=== PATIENT | male | born 1945 | race Caucasian/White ===

== ENCOUNTER 2025-04-20 15:27 | Outpatient (AMB) | payer MEDICARE, OTHER, SELFPAY ==
--- OUTSIDE RECORDS SUMMARY | 2025-04-20 15:30 | XMS_ITS | Patient Health Record ---
Author Organization [facility] Address [address] [facility] [address] [place] [address] Care Team Providers Care Drapery Estimator Name Role Phone Stefan Jeffers MD Primary Care Provider Unavaila Ene Hawthorne Unavailable [phone] Dunia Alejo MD Unavailable Unavaila ble Allergies No Known Allergies Results Component Value Reference Range Notes Urine Culture, Routine Reviewed date:03/08/2025 08:20:27 AM Interpretation: Performing Lab:[facility] [address] [id number], Phone - [phone], Director - Bindu Notes/Report: Clinical Information:SRC:UR Clinical Information:SRC:UR Urine Culture, Routine Final report Result 1 Comment Culture shows less than 10,000 colony forming units of bacteria per milliliter of urine. This colony count is not generally considered to be clinically significant. C-Reactive Protein, Quant Reviewed date:03/08/2025 08:20:27 AM Interpretation: Performing Lab:[facility] [address] [id number], Phone - [phone], Director - Bindu Notes/Report: Clinical Information:SRC:UR C-Reactive Protein, Quant 20 0-10 mg/L CBC With Differential/Platel et Reviewed date:03/08/2025 08:20:27 AM Interpretation: Performing Lab:[facility] [address] [id number], Phone - [phone], Director - Bindu Notes/Report: Clinical Information:SRC:UR WBC 6.0 3.4-10.8 x10E3/uL RBC 5.07 4.14-5.80 x10E6/uL Hemoglobin 16.4 13.0-17.7 g/dL Hematocrit 49.5 37.5-51.0 % MCV 98 79-97 fL MCH 32.3 26.6-33.0 pg MCHC 33.1 31.5-35.7 g/dL RDW 14.1 11.6-15.4 % Platelets 146 150-450 x10E3/uL Neutrophils 52 Not Estab. % Lymphs 30 Not Estab. % Monocytes 13 Not Estab. % Eos 3 Not Estab. % Basos 1 Not Estab. % Neutrophils (Absolute) 3.2 1.4-7.0 x10E3/uL Lymphs (Absolute) 1.8 0.7-3.1 x10E3/uL Monocytes(Absolute) 0.8 0.1-0.9 x10E3/uL Eos (Absolute) 0.2 0.0-0.4 x10E3/uL Baso (Absolute) 0.1 0.0-0.2 x10E3/uL Immature Granulocytes 1 Not Estab. % Immature Grans (Abs) 0.0 0.0-0.1 x10E3/uL Urinalysis, Complete Reviewed date:03/08/2025 08:20:27 AM Interpretation: Performing [facility] [id number], Phone - [phone], Director - Bindu Notes/Report: Clinical Information:SRC:UR Clinical Information:SRC:UR Specific Screven 1.011 1.005-1.030 pH 6.0 5.0-7.5 Urine-Color Yellow Yellow Appearance Clear Clear WBC Esterase Negative Negative Protein Negative Negative/Trace Glucose 2+ Negative Ketones Negative Negative Occult Blood Negative Negative Bilirubin Negative Negative Urobilinogen,Semi-Qn 0.2 0.2-1.0 mg/dL Nitrite, Urine Negative Negative Microscopic Examination Comment Micr oscopic follows if indicated. Microscopic Examination See below: Micr oscopic was indicated and was performed. WBC None seen 0 - 5 /hpf RBC None seen 0 - 2 /hpf Epithelial Cells (non renal) None seen 0 - 10 /hpf Casts None seen None seen /lpf Bacteria None seen None seen/Few Hep B and C Screen Reviewed date:11/21/2024 11:43:16 AM Interpretation: Performing Lab:[facility] [address] [place], [place] [id number], Phone - [phone], Director - Bindu Notes/Report: HBsAg Screen Negative Negative Hep B Surface Ab, Qual Non Reactive Non Reactive: Not immune to HBV infection. Equivocal: Unable to determine if anti-HBs is present at levels consistent with immunity. Reactive: Anti-HBs concentration detected at greater than 10 mIU/mL. Individual is considered to be immune to infection with HBV. Hep B Core Ab, Tot Negative Negative HCV Ab Non Reactive Non Reactive Interpretation: Comment Not infected with HCV unless early or acute infection is suspected (which may be delayed in an immunocompromised individual), or other evidence exists to indicate HCV infection. QuantiFERON TB Gold Plus (LC A Incubated) Reviewed date:11/21/2024 11:43:16 AM Interpretation: Performing [facility] [place] [place] [id number], Phone - [phone], Director - Bindu Notes/Report: QuantiFERON Incubation Incubation performed. QuantiFERON-TB Gold Plus Negative Negative No response to M tuberculosis antigens detected. Infection with M tuberculosis is unlikely, but high risk individuals should be considered for additional testing (ATS/IDSA/CDC Clinical Practice Guidelines, 2017). The reference range is an Antigen minus Nil result of <0.35 IU/mL. Chemiluminescence immunoassay methodology QuantiFERON Criteria Comment QuantiFERON-TB Gold Plus is a qualitative indirect test for M tuberculosis infection (including disease) and is intended for use in conjunction with risk assessment, radiography, and other medical and diagnostic evaluations. The QuantiFERON-TB Gold Plus result is determined by subtracting the Nil value from either TB antigen (Ag) value. The Mitogen tube serves as a control for the test. QuantiFERON TB1 Ag Value 0.01 QuantiFERON TB2 Ag Value 0.01 QuantiFERON Nil Value 0.01 QuantiFERON Mitogen Value >10.00 Comp. Metabolic Panel (14) Reviewed date:11/21/2024 11:43:16 AM Interpretation: [facility] [place] [place] [id number], Phone - [phone], Director - Bindu Notes/Report: Glucose 109 70-99 mg/dL BUN 36 8-27 mg/dL Creatinine 1.89 0.76-1.27 mg/dL eGFR 35 >59 mL/min/1.73 BUN/Creatinine Ratio 19 10-24 Sodium 139 134-144 mmol/L Potassium 4.5 3.5-5.2 mmol/L Chloride 102 96-106 mmol/L Carbon Dioxide, Total 22 20-29 mmol/L Calcium 9.6 8.6-10.2 mg/dL Protein, Total 7.3 6.0-8.5 g/dL Albumin 4.3 3.8-4.8 g/dL Globulin, Total 3.0 1.5-4.5 g/dL Bilirubin, Total 2.0 0.0-1.2 mg/dL Alkaline Phosphatase 103 44-121 IU/L AST (SGOT) 26 0-40 IU/L ALT (SGPT) 21 0-44 IU/L C-Reactive Protein, Quant Reviewed date:11/21/2024 11:43:16 AM Interpretation: Performing Lab:[facility] [place], [address] [place] [id number], Phone - [phone], Director - Bindu Notes/Report: C-Reactive Protein, Quant 25 0-10 mg/L CBC With Differential/Platel et Reviewed date:11/21/2024 11:43:16 AM Interpretation: Performing Lab:[facility], [address] [place] [id number], Phone - [phone], Director - Bindu Notes/Report: WBC 10.2 3.4-10.8 x10E3/uL RBC 5.12 4.14-5.80 x10E6/uL Hemoglobin 16.8 13.0-17.7 g/dL Hematocrit 50.5 37.5-51.0 % MCV 99 79-97 fL MCH 32.8 26.6-33.0 pg MCHC 33.3 31.5-35.7 g/dL RDW 13.8 11.6-15.4 % Platelets 152 150-450 x10E3/uL Neutrophils 75 Not Estab. % Lymphs 16 Not Estab. % Monocytes 6 Not Estab. % Eos 1 Not Estab. % Basos 0 Not Estab. % Neutrophils (Absolute) 7.7 1.4-7.0 x10E3/uL Lymphs (Absolute) 1.6 0.7-3.1 x10E3/uL Monocytes(Absolute) 0.6 0.1-0.9 x10E3/uL Eos (Absolute) 0.1 0.0-0.4 x10E3/uL Baso (Absolute) 0.0 0.0-0.2 x10E3/uL Immature Granulocytes 2 Not Estab. % Immature Grans (Abs) 0.2 0.0-0.1 x10E3/uL (An elevated percentage of Immature Granulocytes has not been found to be clinically significant as a sole clinical predictor of disease. Does NOT include bands or blast cells. associated physiological leukocytosis may also show increased immature granulocytes without clinical significance.) Reason For Referral No Information Medications Medication SIG (Take, Route, Frequency, Duration) Notes Start Date End Date Status Triamcinolone Acetonide 0.025 % 1 application Externally Once a day 11/29/2024 Active Skyrizi Pen 150 MG/ML Loading Dose inject one pen (1 mL) Subcutaneous on week 0 and week 4 for 30 days Rx Clarification for Loading dose PA Approval CASE ID: [id number] Eff 11/26/2023- 027 11/14/2024 Active Magnesium Active Augmentin 500-125 MG 1 tablet Orally every 12 hrs Not-Taking Vitamin K2 Active predniSONE 1 MG 2 tablets Orally each morning for 90 days 2mg a day 11/14/2024 Active Vitamin D3 Active Metoprolol Succinate 25 MG 1 capsule Orally Once a day Active Repatha 140 MG/ML 1 mL Subcutaneous Active Farxiga 10 MG 1 tablet Orally Once a day Active Skyrizi Pen 150 MG/ML 1 mL Subcutaneous every 12 weeks To start 4 weeks after initial loading dose 11/14/2024 Not-Taking predniSONE 5 MG 1 tablet Orally Once a day Not-Taking Uloric 40 MG 1 tablet Orally Once a day Active Lasix 40 MG 1 tablet Orally Once a day prn Active Immunizations Vaccine Route Administration Date Status Comme nts Influenza Unknown 11/14/2024 Refused Influenza Unknown 02/06/2025 Refused Influenza Unknown 03/06/2025 Refused PNEUMOVAX Unknown 11/11/2024 Administered PNEUMOVAX Unknown 01/31/2025 Administered PNEUMOVAX Unknown 03/02/2025 Administered Social History Tobacco Use: Social History Observation Description Date Details (start date - stop date) Never Smoker NA - NA Alcohol Screen Question Answer Notes Did you have a drink containing alcohol in the p ast year? No Points 0 Interpretation Negative Tobacco use other than smoking: Question Answer Notes Are you an other tobacco user? 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) Active confirmed Problem Psoriasis (8540097) Other psoriasis (L40.8) Active confirmed Problem Chronic fatigue, unspecified (R53.82) Active confirmed Problem Long-term current use of systemic steroid (9174822435827 03) USP (current) use of systemic steroids (Z79.52) Active confirmed Vital Signs Heart Rate 69 /min 03/06/2025 Temperature 97.9 degrees Fahrenheit 03/06/2025 Blood pressure diastolic 69 mm Hg 03/06/2025 Height 70 in 03/06/2025 Blood pressure systolic 110 mm Hg 03/06/2025 Weight 173.5 lbs 03/06/2025 BMI 24.89 kg/m2 03/06/2025 Encounters Encounter Location Date Provider Diagnosis [facility] [address] [facility] [address] [place], [place] [id number] 11/14/2024 Ene Barr Other psoriatic arthropathy L40.59 ; Other psoriasis L40.8 ; USP (current) use of systemic steroids Z79.52 ; [employer] high risk medication (other) Z79.899 and Chronic fatigue, unspecified R53.82 [facility] [place] [address] [facility] [address] [place], [place] [id number] 02/06/2025 Ene Barr Other psoriatic arthropathy L40.59 ; Other psoriasis L40.8 ; USP (current) use of systemic steroids Z79.52 and USP high risk medication (other) Z79.[address] [facility] [address] [facility] [address] [place], [place] [id number] 03/06/2025 Ene Barr Other psoriatic arthropathy L40.59 ; Other psoriasis L40.8 ; USP (current) use of systemic steroids Z79.52 ; USP high risk medication (other) Z79.899 and Dysuria R30.0 [facility] [address] [place], [place] [id number] 01/06/[address] [facility] [address] [place], [place] [id number] 02/15/2025 Ene Barr Other psoriatic arthropathy L40.[address] [facility] [address] [place], [place] [id number] 04/18/2025 [facility] [address] [place], [place] [id number] 11/15/2024 Ene Barr Other psoriatic arthropathy L40.59 [facility] [address] [place], [place] [id number] 11/28/2024 [facility] [address] [place], [place] [id number] 11/28/2024 Ene Barr Psoriasis vulgaris L40.0 [facility] [address] [place], [place] [id number] 11/29/2024 [facility] [address] [place], [place] [id number] 12/01/2024 [facility] [address] [place], [place] [id number] 12/01/2024 [facility] [address] [place], [place] [id number] 12/17/2024 [facility] [address] [place], [place] [id number] 12/21/2024 Ene Barr Assessments Encounter Date Diagnosis (ICD Code) Assessment Notes Treatment Notes Treatment Clinical Notes Section Notes 11/14/2024 Other psoriatic arthropathy (ICD-10 - L40.59) Mr. Eaton is here for initial evaluation of psoriatic arthritis and psoriasis. He has long standing disease, prior great benefit with Enbrel but he has opted to treat with just prednisone over the years. Now with multiple co-morbidities (CHF, PAD, chronic wounds, colorectal cancer, diabetes, peripheral neuropathy, recent sepsis) and I strongly encourage him to try to get all the way off prednisone if able. He has been on a low dose for many many years. Given that he also continues to have active arthritis and psoriasis, we will try to replace with immunomodulator. Discussed many options. Methotrexate contraindicated due to CKD. TNFi contraindicated due to advanced heart failure. Jim contraindicated due to h/o cancer and severe PAD. We will go with Skyrizi if covered. Back up plan if needed, consider Orencia infusions - start Skyrizi 150 mg at week 0, 4, then every 12 weeks thereafter - taper prednisone by 1 mg/month to lowest tolerable dose, discussed symptoms of adrenal insufficiency to be aware of - labs today - return to clinic in 2-3 months 60 minutes spent on todays encounter 11/28/2024 Psoriasis vulgaris (ICD-10 - L40.0) 02/06/2025 Other psoriatic arthropathy (ICD-10 - L40.59) Mr. Eaton is here for follow up of psoriatic arthritis and psoriasis. He has long standing disease, prior great benefit with Enbrel but he has opted to treat with just prednisone over the years. Now with multiple co-morbidities (CHF, PAD, chronic wounds, colorectal cancer, diabetes, peripheral neuropathy, recent sepsis) and I have strongly encouraged him to try to get all the way off prednisone if able and he is working on that. Given that he also continues to have active arthritis and psoriasis, I do still recommend we replace with immunomodulator. Methotrexate contraindicated due to CKD. TNFi contraindicated due to advanced heart failure. Jim contraindicated due to h/o cancer and severe PAD. He has developed a new wound and would like to wait to start the Skyrizi which is fine. But he does have the Skyrizi ready at home - once wound heals, ok to start Skyrizi 150 mg at week 0, 4, then every 12 weeks thereafter - taper prednisone by 1 mg/month to lowest tolerable dose (he is currently at 2 mg/d), discussed symptoms of adrenal insufficiency to be aware of - return to clinic in 2-3 months 02/06/2025 Other psoriasis (ICD-10 - L40.8) Mr. Eaton is here for follow up of psoriatic arthritis and psoriasis. He has long standing disease, prior great benefit with Enbrel but he has opted to treat with just prednisone over the years. Now with multiple co-morbidities (CHF, PAD, chronic wounds, colorectal cancer, diabetes, peripheral neuropathy, recent sepsis) and I have strongly encouraged him to try to get all the way off prednisone if able and he is working on that. Given that he also continues to have active arthritis and psoriasis, I do still recommend we replace with immunomodulator. Methotrexate contraindicated due to CKD. TNFi contraindicated due to advanced heart failure. Jim contraindicated due to h/o cancer and severe PAD. He has developed a new wound and would like to wait to start the Skyrizi which is fine. But he does have the Skyrizi ready at home - once wound heals, ok to start Skyrizi 150 mg at week 0, 4, then every 12 weeks thereafter - taper prednisone by 1 mg/month to lowest tolerable dose (he is currently at 2 mg/d), discussed symptoms of adrenal insufficiency to be aware of - return to clinic in 2-3 months 11/14/2024 Other psoriasis (ICD-10 - L40.8) Mr. Eaton is here for initial evaluation of psoriatic arthritis and psoriasis. He has long standing disease, prior great benefit with Enbrel but he has opted to treat with just prednisone over the years. Now with multiple co-morbidities (CHF, PAD, chronic wounds, colorectal cancer, diabetes, peripheral neuropathy, recent sepsis) and I strongly encourage him to try to get all the way off prednisone if able. He has been on a low dose for many many years. Given that he also continues to have active arthritis and psoriasis, we will try to replace with immunomodulator. Discussed many options. Methotrexate contraindicated due to CKD. TNFi contraindicated due to advanced heart failure. Jim contraindicated due to h/o cancer and severe PAD. We will go with Skyrizi if covered. Back up plan if needed, consider Orencia infusions - start Skyrizi 150 mg at week 0, 4, then every 12 weeks thereafter - taper prednisone by 1 mg/month to lowest tolerable dose, discussed symptoms of adrenal insufficiency to be aware of - labs today - return to clinic in 2-3 months 60 minutes spent on todays encounter 02/15/2025 Other psoriatic arthropathy (ICD-10 - L40.59) 03/06/2025 Other psoriatic arthropathy (ICD-10 - L40.59) Mr. Eaton is here for follow up of psoriatic arthritis and psoriasis. He has long standing disease, prior great benefit with Enbrel but he has opted to treat with just prednisone over the years. Now with multiple co-morbidities (CHF, PAD, chronic wounds, colorectal cancer, diabetes, peripheral neuropathy, recent sepsis) and we have been working to get all the way off prednisone if able. Very recently added Skyrizi but has only had 1 dose. We will give it more time Methotrexate contraindicated due to CKD. TNFi contraindicated due to advanced heart failure. Jim contraindicated due to h/o cancer and severe PAD. - continue Skyrizi 150 mg at week 0, 4, then every 12 weeks thereafter (has had one dose so far) - taper prednisone by 1 mg/month to lowest tolerable dose (he is currently at 1 mg/d), ok to play around with dose <5 mg/d as his is a little concerned that some current symptoms may be related to tapering prednisone - check labs today including UA/UC given chills and mild dysuria, slight concern for possible infection - return to clinic in 2-3 months, he and his do snowbird so may not be able to return until they get back 03/06/2025 Other psoriasis (ICD-10 - L40.8) Mr. Eaton is here for follow up of psoriatic arthritis and psoriasis. He has long standing disease, prior great benefit with Enbrel but he has opted to treat with just prednisone over the years. Now with multiple co-morbidities (CHF, PAD, chronic wounds, colorectal cancer, diabetes, peripheral neuropathy, recent sepsis) and we have been working to get all the way off prednisone if able. Very recently added Skyrizi but has only had 1 dose. We will give it more time Methotrexate contraindicated due to CKD. TNFi contraindicated due to advanced heart failure. Jim contraindicated due to h/o cancer and severe PAD. - continue Skyrizi 150 mg at week 0, 4, then every 12 weeks thereafter (has had one dose so far) - taper prednisone by 1 mg/month to lowest tolerable dose (he is currently at 1 mg/d), ok to play around with dose <5 mg/d as his is a little concerned that some current symptoms may be related to tapering prednisone - check labs today including UA/UC given chills and mild dysuria, slight concern for possible infection - return to clinic in 2-3 months, he and his do snowbird so may not be able to return until they get back 11/15/2024 Other psoriatic arthropathy (ICD-10 - L40.59) 03/06/2025 USP (current) use of systemic steroids (ICD-10 - Z79.52) Mr. Eaton is here for follow up of psoriatic arthritis and psoriasis. He has long standing disease, prior great benefit with Enbrel but he has opted to treat with just prednisone over the years. Now with multiple co-morbidities (CHF, PAD, chronic wounds, colorectal cancer, diabetes, peripheral neuropathy, recent sepsis) and we have been working to get all the way off prednisone if able. Very recently added Skyrizi but has only had 1 dose. We will give it more time Methotrexate contraindicated due to CKD. TNFi contraindicated due to advanced heart failure. Jim contraindicated due to h/o cancer and severe PAD. 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 Eaton is here for initial evaluation of psoriatic arthritis and psoriasis. He has long standing disease, prior great benefit with Enbrel but he has opted to treat with just prednisone over the years. Now with multiple co-morbidities (CHF, PAD, chronic wounds, colorectal cancer, diabetes, peripheral neuropathy, recent sepsis) and I strongly encourage him to try to get all the way off prednisone if able. He has been on a low dose for many many years. Given that he also continues to have active arthritis and psoriasis, we will try to replace with immunomodulator. Discussed many options. Methotrexate contraindicated due to CKD. TNFi contraindicated due to advanced heart failure. Jim contraindicated due to h/o cancer and severe PAD. We will go with Skyrizi if covered. Back up plan if needed, consider Orencia infusions - start Skyrizi 150 mg at week 0, 4, then every 12 weeks thereafter - taper prednisone by 1 mg/month to lowest tolerable dose, discussed symptoms of adrenal insufficiency to be aware of - labs today - return to clinic in 2-3 months 60 minutes spent on todays encounter 02/06/2025 USP (current) use of systemic steroids (ICD-10 - Z79.52) Mr. Eaton is here for follow up of psoriatic arthritis and psoriasis. He has long standing disease, prior great benefit with Enbrel but he has opted to treat with just prednisone over the years. Now with multiple co-morbidities (CHF, PAD, chronic wounds, colorectal cancer, diabetes, peripheral neuropathy, recent sepsis) and I have strongly encouraged him to try to get all the way off prednisone if able and he is working on that. Given that he also continues to have active arthritis and psoriasis, I do still recommend we replace with immunomodulator. Methotrexate contraindicated due to CKD. TNFi contraindicated due to advanced heart failure. Jim contraindicated due to h/o cancer and severe PAD. He has developed a new wound and would like to wait to start the Skyrizi which is fine. But he does have the Skyrizi ready at home - once wound heals, ok to start Skyrizi 150 mg at week 0, 4, then every 12 weeks thereafter - taper prednisone by 1 mg/month to lowest tolerable dose (he is currently at 2 mg/d), discussed symptoms of adrenal insufficiency to be aware of - return to clinic in 2-3 months 02/06/2025 USP high risk medication (other) (ICD-10 - Z79.899) Mr. Eaton is here for follow up of psoriatic arthritis and psoriasis. He has long standing disease, prior great benefit with Enbrel but he has opted to treat with just prednisone over the years. Now with multiple co-morbidities (CHF, PAD, chronic wounds, colorectal cancer, diabetes, peripheral neuropathy, recent sepsis) and I have strongly encouraged him to try to get all the way off prednisone if able and he is working on that. Given that he also continues to have active arthritis and psoriasis, I do still recommend we replace with immunomodulator. Methotrexate contraindicated due to CKD. TNFi contraindicated due to advanced heart failure. Jim contraindicated due to h/o cancer and severe PAD. He has developed a new wound and would like to wait to start the Skyrizi which is fine. But he does have the Skyrizi ready at home - once wound heals, ok to start Skyrizi 150 mg at week 0, 4, then every 12 weeks thereafter - taper prednisone by 1 mg/month to lowest tolerable dose (he is currently at 2 mg/d), discussed symptoms of adrenal insufficiency to be aware of - return to clinic in 2-3 months 11/14/2024 USP high risk medication (other) (ICD-10 - Z79.899) Mr. Eaton is here for initial evaluation of psoriatic arthritis and psoriasis. He has long standing disease, prior great benefit with Enbrel but he has opted to treat with just prednisone over the years. Now with multiple co-morbidities (CHF, PAD, chronic wounds, colorectal cancer, diabetes, peripheral neuropathy, recent sepsis) and I strongly encourage him to try to get all the way off prednisone if able. He has been on a low dose for many many years. Given that he also continues to have active arthritis and psoriasis, we will try to replace with immunomodulator. Discussed many options. Methotrexate contraindicated due to CKD. TNFi contraindicated due to advanced heart failure. Jim contraindicated due to h/o cancer and severe PAD. We will go with Skyrizi if covered. 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 Eaton is here for follow up of psoriatic arthritis and psoriasis. He has long standing disease, prior great benefit with Enbrel but he has opted to treat with just prednisone over the years. Now with multiple co-morbidities (CHF, PAD, chronic wounds, colorectal cancer, diabetes, peripheral neuropathy, recent sepsis) and we have been working to get all the way off prednisone if able. Very recently added Skyrizi but has only had 1 dose. We will give it more time Methotrexate contraindicated due to CKD. TNFi contraindicated due to advanced heart failure. Jim contraindicated due to h/o cancer and severe PAD. - continue Skyrizi 150 mg at week 0, 4, then every 12 weeks thereafter (has had one dose so far) - taper prednisone by 1 mg/month to lowest tolerable dose (he is currently at 1 mg/d), ok to play around with dose <5 mg/d as his is a little concerned that some current symptoms may be related to tapering prednisone - check labs today including UA/UC given chills and mild dysuria, slight concern for possible infection - return to clinic in 2-3 months, he and his do snowbird so may not be able to return until they get back 03/06/2025 Dysuria (ICD-10 - R30.0) Mr. Eaton is here for follow up of psoriatic arthritis and psoriasis. He has long standing disease, prior great benefit with Enbrel but he has opted to treat with just prednisone over the years. Now with multiple co-morbidities (CHF, PAD, chronic wounds, colorectal cancer, diabetes, peripheral neuropathy, recent sepsis) and we have been working to get all the way off prednisone if able. Very recently added Skyrizi but has only had 1 dose. We will give it more time Methotrexate contraindicated due to CKD. TNFi contraindicated due to advanced heart failure. Jim contraindicated due to h/o cancer and severe PAD. - continue Skyrizi 150 mg at week 0, 4, then every 12 weeks thereafter (has had one dose so far) - taper prednisone by 1 mg/month to lowest tolerable dose (he is currently at 1 mg/d), ok to play around with dose <5 mg/d as his is a little concerned that some current symptoms may be related to tapering prednisone - check labs today including UA/UC given chills and mild dysuria, slight concern for possible infection - return to clinic in 2-3 months, he and his do snowbird so may not be able to return until they get back 11/14/2024 Chronic fatigue, unspecified (ICD-10 - R53.82) Mr. Eaton is here for initial evaluation of psoriatic arthritis and psoriasis. He has long standing disease, prior great benefit with Enbrel but he has opted to treat with just prednisone over the years. Now with multiple co-morbidities (CHF, PAD, chronic wounds, colorectal cancer, diabetes, peripheral neuropathy, recent sepsis) and I strongly encourage him to try to get all the way off prednisone if able. He has been on a low dose for many many years. Given that he also continues to have active arthritis and psoriasis, we will try to replace with immunomodulator. Discussed many options. Methotrexate contraindicated due to CKD. TNFi contraindicated due to advanced heart failure. Jim contraindicated due to h/o cancer and severe PAD. We will go with Skyrizi if covered. Back up plan if needed, consider Orencia infusions - start Skyrizi 150 mg at week 0, 4, then every 12 weeks thereafter - taper prednisone by 1 mg/month to lowest tolerable dose, discussed symptoms of adrenal insufficiency to be aware of - labs today - return to clinic in 2-3 months 60 minutes spent on todays encounter Plan Of Treatment Next Appt Details Provider Name:Ene Barr, Brisa 12/04/2025 02:30:00 PM, [address] Count Includes [facility] [address], [place], [place], [id number], Insurance Providers Payer Name Payer Address Payer Phone Subscriber Number Group Number Insured Name Patient Relationship to Insured Coverage Start Date Coverage End Date [employer] [address] [place] [phone] [id number] [place] Eaton Self - patient is the insured [facility] [address] [address] [place] [address] [id number] [place] Eaton Self - patient is the insured Medical (General) History Medical History History ICD Code cardiomyopathy, EF 20-25% in 2021 gout psoriatic arthritis - tx methotrexate (m alaise), Enbrel colon cancer, age 69, tx surgery and justina mo 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
--- NOTE | 2025-04-20 15:40 | HO.NEPHOV_ITS ---
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 He has vascular disease including moderate stenosis of both carotid arteries. He is on lipid low ering medications. He has H/O CVA of meg. He has H/O AVR as well as cardiomyopathy/ CHF and is on Farxiga, lasix, metoprolol. He has gout and is on Uloric. He also takes Coseyntyx. He has been having elevated liver enzymes( AST, GGT and Alk Phos). He recently had AMS which the family felt had improved with hydration. He denies any known LUPILLO or PAD. He has no H/O amyloidosis. His recent serum creatinine has been 1.94. 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 Atrial fibrillation Surgical History (Updated 04/20/25 @ 15:50 by Anahy Cast MA) S/P ablation of atrial fibrillation S/P partial colectomy H/O colonoscopy with polypectomy H/O aortic valve replacement Social History (Updated 04/20/25 @ 15:42 by Anahy Cast MA) Alcohol intake: former Patient Tobacco Use Status: Never used Tobacco Review of Systems Const All systems reviewed & are unremarkable except as noted in HPI and below Physical Exam Vital Signs: Last Vital Signs Pulse 51 04/20/25 15:47 BP 92/60 04/20/25 15:47 Pulse Ox 98 04/20/25 15:47 Oxygen Delivery Method Room Air 05/29/25 15:47 BMI result Body Mass Index 24.4 Const General: comfortable and no acute distress Orientation/consciousness: patient oriented x3 HEENT Head: Yes normocephalic Mouth: Normal oral and palatal mucosa present Eyes EOM: EOMs intact bilaterally Neck Neck: Yes supple Resp Auscultation: clear to auscultation bilaterally Cardio Jugular venous distension: no JVD Rate: regular rate GI Palpation (GI): Soft to palpation Auscultation: normal bowel sounds General: Yes no CVA tenderness Back/Spine/Pelvis Back: no CVA tenderness Skin General skin exam: no rashes or lesions noted Neuro General: patient oriented x3 and moves all extremities Extrem General: Yes no pedal edema Assessment & Plan Assessment & Plan (1) Chronic kidney disease (CKD), stage 4: Code(s): N18.4 - Chronic kidney disease, stage 4 (severe) Category: Medical Plan [place] has progressive renal disease likely due to multifactorial etiology. He has nodularity of liver suggestive of cirrhosis. He has H/O AVR as well as cardiomyopathy. He is not sure the liver cirrhosis is due to cardiac or liver etiology. He has been on various medications for psoriatic arthropathy. Progressive renal dysfunction from AIN or due to vascular disease with decompensation secondary to low BP / altered hemodynamics causing hemodynamic PILY needs to be considered. He has no H/O known amyloidosis( has cardiomyopathy as well as renal dysfunction). He is on Farxiga and his cardiac status is compensated. He may be a great candidate for spironolactone if his hemodynamics permit. I have ordered basic work up including creatinine clearance. I shall consider doing immunofixation as well as a renal biopsy if his creatinine worsens. 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 Further management is pending evolving data Orders: Orders Blood Urea Nitrogen 04/20/25 N18.4 - Chronic kidney disease, stage 4 (severe) Creatinine 04/20/25 N18.4 - Chronic kidney disease, stage 4 (severe) US renal doppler 1 Month N18.4 - Chronic kidney disease, stage 4 (severe) Creatinine Clearance Urine 24U 04/20/25 N18.4 - Chronic kidney disease, stage 4 (severe) Electrolytes 04/20/25 N18.4 - Chronic kidney disease, stage 4 (severe) US renal BI 1 Month N18.4 - Chronic kidney disease, stage 4 (severe) Calcium 04/20/25 N18.4 - Chronic kidney disease, stage 4 (severe) Coding Level of Care Code New Pt Level 4 (45702) Diagnoses Chronic kidney disease (CKD), stage 4 N18.4
[2025-04-20 15:47] VITALS: BP 92/60; PULSE 51; O2SAT 98; BMI 24.4
== END 2025-04-20 16:45 | disposition home or self-care (01) ==
LOC: HO.HKAS 15:28
PROVIDERS: PCP Physician Assistant Medical; Visit Provider Internal Medicine Nephrology
DX: N18.4 Chronic kidney disease, stage 4 (severe) (principal)
CPT/HCPCS: 99204

== ENCOUNTER → 2025-04-20 15:27 | Outpatient (BNVA) | payer MEDICARE, OTHER, SELFPAY | PROVIDERS: PCP Physician Assistant Medical; Visit Provider Internal Medicine Nephrology | DX: N18.4 Chronic kidney disease, stage 4 (severe) (principal) | CPT/HCPCS: 99202 ==

== ENCOUNTER 2025-05-25 08:03 | Outpatient (REF) | payer MEDICARE, OTHER, SELFPAY ==
--- OUTSIDE RECORDS SUMMARY | 2025-01-17 09:00 | XMS_ITS ---
Author Organization [facility] Address [address] [facility] [address] [place] [address] Care Team Providers Care Top Flavor Attendant Name Role Phone Sarika BRAND LEADER, Lula Primary Care Provider Ronaldo Singh Unavailable [phone] REASON FOR VISIT L ankle wound Encounters Encounter Location Date Provider Diagnosis [facility] [address] [facility] [address] [place] [address] 01/17/2025 Ronlado Gale Plan Of Treatment Next Appt Details Provider Name:Ronaldo Gale, 05/25/2025 02:00:00 PM, [address], [place], [address], Progress Notes * [place] EATONDOB:1945 ( 79 yo M)Acc No.[id number]:01/17/2025 Returning Patient Visit Patient: [place] PRUITT Provider: Thomas Gale NP :1945 A ge:79 Y S ex:Male Date:01/17/2025 Address:[address], [facility] Pcp:Lula Baum NP Subjective: * Chief Complaints: * 1 . L ankle wound. * Medical History: Objective: * Vitals: Assessment: Plan: * Treatment: * Billing Information: * Visit Code: * Procedure Codes: * Electronic signature of Chase Gale NP on 05/25/2025 at 08:07 AM EDT Sign off status: Pending * Provider: Thomas Gale NP Date: 01/17/2025 Generated for Katie corbett/Pily/eTransmitting on: 05/25/2025 08:07 AM EDT
--- NOTE | ~2025-05-25 | US_ITS ---
CLINICAL HISTORY: N18.4 - Chronic kidney disease, stage 4 (severe) US Renal with Doppler Comparison: None provided Findings: Right kidney normal size and echotexture, 11.4 cm length. No hydronephrosis. Normal color Doppler. Resistive index 0.8. Left kidney normal size and echotexture, 10.8 cm length. No hydronephrosis. Normal color Doppler. Resistive index 0.8. IMPRESSION: 1. Findings suggesting bilateral renal artery stenosis. Clinically appropriate follow-up recommended. This document has been electronically signed by: Ronaldo Shaw MD on 05/25/2025 10:29:02
--- OUTSIDE RECORDS SUMMARY | 2025-05-25 08:07 | XMS_ITS | Patient Health Record ---
Author Organization [facility] Address [address] [place] [address] Care Team Providers Care Pit Recorder Name Role Phone Stefan Jeffers MD Primary Care Provider Unavaila Ene Hawthorne Unavailable [phone] Dunia Alejo MD Unavailable Unavaila ble Allergies No Known Allergies Results Component Value Reference Range Notes Urine Culture, Routine Reviewed date:03/08/2025 08:20:27 AM Interpretation: Performing Lab:[facility] [address] [id number], Phone - [phone], Director - Bindu Notes/Report: Clinical Information:SRC:UR Clinical Information:SRC:UR Urine Culture, Routine Final report Result 1 Comment Culture shows less than 10,000 colony forming units of bacteria per milliliter of urine. This colony count is not generally considered to be clinically significant. C-Reactive Protein, Quant Reviewed date:03/08/2025 08:20:27 AM Interpretation: Performing Lab:[facility] [address] [id number], Phone - [phone], Director - Bindu Notes/Report: Clinical Information:SRC:UR C-Reactive Protein, Quant 20 0-10 mg/L CBC With Differential/Platel et Reviewed date:03/08/2025 08:20:27 AM Interpretation: Performing Lab:[facility] [address] [id number], Phone - [phone], Director - Bindu Notes/Report: Clinical Information:SRC:UR WBC [...] Complete Reviewed date:03/08/2025 08:20:27 AM Interpretation: Performing [facility] [id number], Phone - [phone], Director - Bindu Notes/Report: Clinical Information:SRC:UR Clinical Information:SRC:UR Specific [place] 1.011 1.005-1.030 pH 6.0 5.0-7.5 Urine-Color Yellow [...] date:11/21/2024 11:43:16 AM Interpretation: Performing Lab:[facility] [place], [place] [id number], Phone - [phone], Director - Bindu Notes/Report: HBsAg Screen Negative [...] Incubated) Reviewed date:11/21/2024 11:43:16 AM Interpretation: Performing [facility] [place] [place] [id number], Phone - [phone], Director - Bindu Notes/Report: QuantiFERON Incubation Incubation [...] (14) Reviewed date:11/21/2024 11:43:16 AM Interpretation: [facility] [place] [place] [id number], Phone - [phone], Director - Bindu Notes/Report: Glucose 109 70-99 [...] Reviewed date:11/21/2024 11:43:16 AM Interpretation: Performing Lab:[facility] [place], [address] [place] [id number], Phone - [phone], Director - Bindu Notes/Report: C-Reactive Protein, Quant 25 0-10 mg/L CBC With Differential/Platel et Reviewed date:11/21/2024 11:43:16 AM Interpretation: Performing Lab:[facility], [address] [place] [id number], Phone - [phone], Director - Bindu Notes/Report: WBC 10.2 3.4-10.8 [...] application Externally Once a day 11/29/2024 Active Magnesium Active Augmentin 500-125 MG 1 tablet Orally jakub ry 12 hrs Not-Taking Vitamin K2 Active predniSONE 1 MG 2 tablets Orally eac h morning for 90 days 2mg a day [...] tablet Orally Once a day prn Active Skyrizi Pen 150 MG/ML Maintenance Dose: Inject one pen Subcutaneous Once every 12 weeks for 90 days 11/14/2024 Active Immunizations Vaccine Route Administration Date Status Comme nts PNEUMOVAX Unknown 11/11/2024 Administered PNEUMOVAX Unknown 01/31/2025 Administered PNEUMOVAX Unknown 03/02/2025 Administered Influenza Unknown 11/14/2024 Refused Influenza Unknown 02/06/2025 Refused Influenza Unknown 03/06/2025 Refused Social History Tobacco Use: Social History Observation [...] W/U Status Risk Notes Problem Psoriasis vulgaris (L40.0) Active confirmed Problem Psoriatic arthritis (disorder) (993488473) Other psoriatic arthropathy (L40.59) Active confirmed Problem Psoriasis (1983542) Other psoriasis (L40.8) Active confirmed Problem Chronic fatigue syndrome (disorder) (23204179) Chronic fatigue, unspecified (R53.82) Active confirmed Problem Long-term current use of systemic steroid ([id number] 03) group home (current) use of systemic steroids (Z79.52) Active confirmed Vital Signs Heart Rate 69 /min 03/06/2025 Temperature 97.9 degrees Fahrenheit 03/06/2025 Blood pressure diastolic 69 mm Hg 03/06/2025 Height 70 in 03/06/2025 Blood pressure systolic 110 mm Hg 03/06/2025 Weight 173.5 lbs 03/06/2025 BMI 24.89 kg/m2 03/06/2025 Encounters Encounter Location Date Provider Diagnosis [facility] [address] [place], [place] [id number] 11/14/2024 Ene Barr Other psoriatic arthropathy L40.59 ; Other psoriasis L40.8 ; group home (current) use of systemic steroids Z79.52 ; 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 terminal 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 high risk medication (other) Z79.899 and Chronic fatigue, unspecified R53.82 [facility] [address] [place] [id number] 02/06/2025 Ene Barr Other psoriatic arthropathy L40.59 ; Other psoriasis L40.8 ; keno terminal operator (current) use of systemic steroids Z79.52 and keno terminal operator high risk medication (other) Z79.899 [facility] [address] [place] [id number] 03/06/2025 Ene Barr Other psoriatic arthropathy L40.59 ; Other psoriasis L40.8 ; keno terminal operator (current) use of systemic steroids Z79.52 ; group home high risk medication (other) Z79.899 and Dysuria R30.0 [facility] [address] [place], [place] [id number] 01/06/2025 [facility] [address] [place], [place] [id number] 02/15/2025 Ene Barr Other psoriatic arthropathy L40.[address] [facility] [address] [place], [place] [id number] 04/18/2025 Ene [facility] [address] [place], [place] [id number] 04/28/2025 Ene Barr Other psoriatic arthropathy L40.[address] [facility] [address] [place], [place] [id number] 11/15/2024 Ene Barr Other psoriatic arthropathy L40.[address] [facility] [address] [place], [place] [id number] 11/28/2024 Ene [facility] [address] [place], [place] [id number] 11/28/2024 Ene Barr Psoriasis vulgaris L40.[address] [facility] [address] [place], [place] [id number] 11/29/2024 [facility] [address] [place], [place] [id number] 12/01/2024 [facility] [address] [place], [place] [id number] 12/01/2024 [facility] [address] [place], [place] [id number] 12/17/2024 [facility] [address] [place], [place] [id number] 12/21/2024 Ene Barr Assessments Encounter Date Diagnosis [...] 11/15/2024 Other psoriatic arthropathy (ICD-10 - L40.59) 04/28/2025 Other psoriatic arthropathy (ICD-10 - L40.59) 03/06/2025 keno terminal operator (current) use of systemic steroids (ICD-10 - [...] to return until they get back 11/14/2024 group home (current) use of systemic steroids (ICD-10 - [...] 60 minutes spent on todays encounter 02/06/2025 keno terminal operator (current) use of systemic steroids (ICD-10 - [...] return to clinic in 2-3 months 02/06/2025 keno terminal 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 high risk medication (other) (ICD-10 - Z79.899) [...] return to clinic in 2-3 months 11/14/2024 keno terminal operator high risk medication (other) (ICD-10 - Z79.899) [...] 60 minutes spent on todays encounter 03/06/2025 group home high risk medication (other) (ICD-10 - Z79.899) [...] Name:Ene Barr, Brisa 12/04/2025 02:30:00 PM, [address], [place], [place], [id number], Insurance Providers Payer Name Payer Address Payer Phone Subscriber Number Group Number Insured Name Patient Relationship to Insured Coverage Start Date Coverage End Date [employer] [address] [facility] [address] [id number] [place] Eaton Self - patient is the insured [facility] [address] [address] [place] [address] [phone] [id number] [place] Eaton Self - patient is the insured Medical (General) History Medical History History ICD Code cardiomyopathy, EF 20-25% in 2021 gout psoriatic arthritis - tx methotrexate (m alaiván), Enbrel colon cancer, age 69, tx surgery and justina mo 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
--- OUTSIDE RECORDS SUMMARY | 2025-05-25 08:08 | XMS_ITS | Patient Health Record ---
Author Organization [facility] Address [address] [facility] [address] [place] [address] Care Team Providers Care Kier Pleater Name Role Phone Lula Salinas Primary Care Provider Unavaila alondra HARMAN RAMIREZ Unavailable [phone] Allergies No Known Allergies Results Component Value Reference Range Notes [id number] Reviewed date:04/03/2025 09:33:35 AM Interpretation: Performing Lab:[facility], [address] [place] [address], Phone - [phone], Director - MDJodry Notes/Report: GGT 223 0-65 IU/L Hepatic Function Panel (7)-[id number] Reviewed date:04/03/2025 09:33:35 AM Interpretation: Performing Lab:[facility], [address] [place] [address], Phone - [phone], Director - MDJodry Notes/Report: Protein, Total 7.3 6.0-8.5 g/dL Albumin 4.0 3.8-4.8 g/dL Bilirubin, Total 2.6 0.0-1.2 mg/dL Bilirubin, Direct 1.33 0.00-0.40 mg/dL Alkaline Phosphatase 167 44-121 IU/L AST (SGOT) 56 0-40 IU/L ALT (SGPT) 34 0-44 IU/L PTH, Intact-[id number] Reviewed date:04/03/2025 09:33:35 AM Interpretation: Performing Lab:[facility], [address] [place] [address], Phone - [phone], Director - MDJodry Notes/Report: PTH, Intact 21 15-65 pg/mL Phosphorus-[id number] Reviewed date:04/03/2025 09:33:35 AM Interpretation: Performing Lab:[facility], [address] [place] [address], Phone - [phone], Director - MDJodry Notes/Report: Phosphorus 4.5 2.8-4.1 mg/dL Calcium-[id number] Reviewed date:04/03/2025 09:33:35 AM Interpretation: Performing Lab:[facility] [place], [address] [facility], Phone - [phone], Director - MDJodry Notes/Report: Calcium 9.8 8.6-10.2 mg/dL Lipid Panel-[id number] Reviewed date:08/24/2024 09:01:49 AM Interpretation: Performing Lab:[facility] [place], [address] [facility], Phone - [phone], Director - MDJodry Notes/Report: Cholesterol, Total 240 100-199 mg/dL Triglycerides 91 0-149 mg/dL HDL Cholesterol 70 >39 mg/dL VLDL Cholesterol Lg 16 5-40 mg/dL LDL Chol Calc (NIH) 154 0-99 mg/dL CBC With Differential/Platel et-[id number] Reviewed date:08/24/2024 09:01:49 AM Interpretation: Performing Lab:[facility] [place], [address] [place] [address], Phone - [phone], Director - MDJodry Notes/Report: WBC 8.5 3.4-10.8 x10E3/uL RBC 4.93 4.14-5.80 x10E6/uL Hemoglobin 15.7 13.0-17.7 g/dL Hematocrit 47.7 37.5-51.0 % MCV 97 79-97 fL MCH 31.8 26.6-33.0 pg MCHC 32.9 31.5-35.7 g/dL RDW 14.2 11.6-15.4 % Platelets 130 150-450 x10E3/uL Neutrophils 68 Not Estab. % Lymphs 22 Not Estab. % Monocytes 7 Not Estab. % Eos 1 Not Estab. % Basos 1 Not Estab. % Neutrophils (Absolute) 5.8 1.4-7.0 x10E3/uL Lymphs (Absolute) 1.9 0.7-3.1 x10E3/uL Monocytes(Absolute) 0.6 0.1-0.9 x10E3/uL Eos (Absolute) 0.1 0.0-0.4 x10E3/uL Baso (Absolute) 0.1 0.0-0.2 x10E3/uL Immature Granulocytes 1 Not Estab. % Immature Grans (Abs) 0.1 0.0-0.1 x10E3/uL Hemoglobin [id number] Reviewed date:08/24/2024 09:01:49 AM Interpretation: Performing Lab:[facility], [address], [place], Phone - [phone], Director - Griselda Notes/Report: Hemoglobin A1c 7.9 4.8-5.6 % . Prediabetes: 5.7 - 6.4 Diabetes: >6.4 Glycemic control for adults with diabetes: <7.0 Anaerobic/Aerobic/Gram Stain -[id number] Reviewed date:08/01/2024 12:19:40 PM Interpretation: Performing Lab:[facility], [address], [address], [place], Phone - [phone], Director - [facility] Notes/Report: Clinical Information:right foot ulceration. Clinical Information:right foot ulceration. Clinical Information:right foot ulceration. Clinical Information:right foot ulceration. Anaerobic Culture Final report Aerobic Culture Final report Gram Stain Result Final report Result 1 No anaerobic gr owth in 72 hours. Result 1 Staphylococcus aureus Heavy growth Based on susceptibility to oxacillin this isolate would be susceptible to: *Penicillinase-stable penicillins, such as: Cloxacillin, Dicloxacillin, Nafcillin *Beta-lactam combination agents, such as: Amoxicillin-clavulanic acid, Ampicillin-sulbactam, Piperacillin-tazobacta m *Oral cephems, such as: Cefaclor, Cefdinir, Cefpodoxime, Cefprozil, Cefuroxime, Cephalexin, Loracarbef *Parenteral cephems, such as: Cefazolin, Cefepime, Cefotaxime, Cefotetan, Ceftaroline, Ceftizoxime, Ceftriaxone, Cefuroxime *Carbapenems, such as: Doripenem, Ertapenem, Imipenem, Meropenem Result 2 Klebsiella oxytoca Moderate growth Result 3 Mixed skin mark Light growt h Antimicrobial Susceptibility S = Susceptible; I = Intermediate; R = Resistant P = Positive; N = Negative MICS are expressed in micrograms per mL Antibiotic RSLT#1 RSLT#2 RSLT#3 RSLT#4 Amoxicillin/Clavulanic Acid S Ampicillin R Cefazolin R Cefepime S Ceftriaxone S Cefuroxime S Ciprofloxacin S S Clindamycin S Erythromycin S Gentamicin S S Imipenem S Levofloxacin S S Linezolid S Meropenem S Moxifloxacin S Oxacillin S Penicillin R Quinupristin/Dalfopris tin S Rifampin S Tetracycline S S Tobramycin S Trimethoprim/Sulfa S S Vancomycin S Result 1 No white blood cells seen. Result 2 Few gram positi ve cocci Result 3 Rare gram negat kavin rods. Comp. Metabolic Panel ([id number] Reviewed date:08/24/2024 09:01:49 AM Interpretation: Performing Lab:[facility] [place], [address] [place] [address], Phone - [phone], Director [facility] Notes/Report: Glucose 132 70-99 mg/dL BUN 38 8-27 mg/dL Creatinine 2.09 0.76-1.27 mg/dL eGFR 32 >59 mL/min/1.73 BUN/Creatinine Ratio 18 10-24 Sodium 141 134-144 mmol/L Potassium 4.6 3.5-5.2 mmol/L Chloride 102 96-106 mmol/L Carbon Dioxide, Total 21 20-29 mmol/L Calcium 9.9 8.6-10.2 mg/dL Protein, Total 7.5 6.0-8.5 g/dL Albumin 4.2 3.8-4.8 g/dL Globulin, Total 3.3 1.5-4.5 g/dL Bilirubin, Total 1.5 0.0-1.2 mg/dL Alkaline Phosphatase 72 44-121 IU/L AST (SGOT) 27 0-40 IU/L ALT (SGPT) 20 0-44 IU/L PTH, Intact-[id number] Reviewed date:08/24/2024 09:01:49 AM Interpretation: Performing Lab:[facility] [place], [address] [place] [address], Phone - [phone], Director - MDJodry Notes/Report: PTH, Intact 37 15-65 pg/mL C-Reactive Protein, Quant-00 [id number] Reviewed date:08/24/2024 09:01:49 AM Interpretation: Performing Lab:[facility] [place], [address] [place] [address], Phone - [phone], Director - MDJodry Notes/Report: C-Reactive Protein, Quant 13 0-10 mg/L Sedimentation Rate-[facility] n-[id number] Reviewed date:08/24/2024 09:01:49 AM Interpretation: Performing Lab:[facility], [address], [place], Phone - [phone], Director - Griselda Notes/Report: Sedimentation Rate-Westergren 6 0-30 mm/hr Calcium, Ionized, Serum-[id number] Reviewed date:08/24/2024 09:01:49 AM Interpretation: Performing Lab:[facility], [address], [place], Phone - [phone], Director - Griselda Notes/Report: Calcium, Ionized, Serum 5.1 4.5-5.6 mg/dL Reason For Referral Reason New diagnosis of irineo forrester with recent HgbA1c 7.9, Nonhealing ulceration right foot. Diagnosis 1 Type 2 diabetes alejo itus with other skin ulcer, without long-term current use of insulin (E11.622) Referral Organization [facility] Referring Provider First Name HARMAN Referring Provider Last Name JAMES Referring Provider Speciality Podiatry Referred Provider Specialty General phys ician Referral Priority Urgent Reason non traumatic ruptur e of the right achilles midsubstance treated conservatively. Was unable to finish PT and would like to restart. He will also be getting a custom AFO. Diagnosis 1 Non-traumatic ruptur e of right Achilles tendon (M66.361) Referral Organization [facility] Referring Provider First Name HARMAN Referring Provider Last Name JAMES Referring Provider Speciality Podiatry Referred Provider Specialty Physical The rapist Referral Priority Routine Medications Medication SIG (Take, Route, Frequency, Duration) Notes Start Date End Date Status Turmeric Curcumin - 2 tablets Orally daily Active Doxycycline Monohydrate 100 MG 1 capsule Orally every 12 hrs for 7 days 08/15/2024 Not-Taking Metoprolol Succinate ER 25 MG 1 tablet Orally Once a day Active Doxycycline Monohydrate 100 MG 1 capsule Orally every 12 hrs for 7 days 08/04/2024 Not-Taking Farxiga 10 MG 1 tablet Orally Once a day Active Doxycycline Monohydrate 100 MG 1 capsule Orally every 12 hrs for 7 days 08/01/2024 Not-Taking predniSONE 5 MG 1 tablet Orally Once a day Active Doxycycline Monohydrate 100 MG 1 capsule Orally every 12 hrs for 7 days 07/28/2024 Not-Taking CoQ-10 100 MG 1 capsule with a meal Orally Once a day Active Vitamin D3 125 MCG (5000 UT) as directed Orally Active Vitamin K take 1500 mg by mouth daily Active Aspirin 81 MG 1 tablet Orally Once a day Not-Taking Febuxostat 40 MG TAKE 1 TABLET BY MOUTH EVERY DAY for 90 Not-Taking Eliquis 5 MG as directed Orally Not-Taking Augmentin 500-125 MG 1 tablet Orally every 12 hrs Not-Taking Repatha 140 MG/ML 1 mL Subcutaneous Active Uloric 40 MG TAKE 1 TABLET BY MOUTH EVERY DAY for 90 Active Furosemide 40 MG 1 tablet Orally Once a day Active Lidocaine 5 % 1 patch remove after 12 hours Externally to both feet Once a day for 30 days neuritis both feet 03/25/2021 Not-Taking Amoxicillin-Pot Clavulanate 250-125 MG 1 tablet Orally every 12 hours for 7 days 10/13/2024 Not-Taking Amoxicillin-Pot Clavulanate 500-125 MG 1 tablet Orally every 12 hrs for 7 days 09/23/2024 Not-Taking Magnesium Aspartate 144mg by dennise th daily Not-Taking Ascorbic Acid 500 MG 1 tablet Orally Once a day Not-Taking Krill Oil - 750mg Orally daily Not-Taking Doxycycline Monohydrate 100 MG 1 capsule Orally every 12 hrs for 14 days 09/15/2024 Not-Taking Skyrizi 180 MG/1.2ML 1.2 mL Subcutaneous Active Potassium Gluconate 550 MG 1 tablet Orally as needed Not-Taking Apoaequorin 10 MG as directed Orally Not-Taking hydrALAZINE HCl 10 MG 1 tablet with food Orally Three times a day Not-Taking Carvedilol 6.25 MG 1 tablet with food Orally Twice a day Not-Taking Problems Problem Type SNOMED Code ICD Code Onset Dates Problem Status W/U Status Risk Notes Problem 480227826 Mixed hyperlipidemia (E78.2) Active confirmed Problem 85311499 Hypercalcemia (E83.52) Active confirmed Problem 5961946 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 Problem 850829991 Ulcer of right f oot with fat layer exposed (L97.512) Active confirmed Problem 76279879016390301 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 Problem 947815813 Peripheral arter ial disease (I73.9) Active confirmed Problem 67287980 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) Active confirmed Problem 4788281084157619 Acute gout of r ight foot, unspecified cause (M10.9) Active confirmed Problem 777439637 Stage 4 chronic kidney disease (N18.4) Active confirmed Problem 351410764 Thrombocytopenia (D69.6) Active confirmed Problem 929046666 Pressure injury of right foot, stage 3 (L89.893) Active confirmed Problem 481628210312973 Type 2 diabetes mellitus with other skin ulcer, without long-term current use of insulin (E11.622) Active confirmed Vital Signs Heart Rate 62 /min 09/20/2024 Temperature 96.7 degrees Fahrenheit 09/20/2024 Respiratory Rate 20 /min 09/20/2024 Blood pressure diastolic 62 mm Hg 08/01/2024 Height 70.5in in 03/24/2025 Blood pressure systolic 108 mm Hg 08/01/2024 Weight 189.4 lbs 09/09/2024 BMI 26.79 kg/m2 09/09/2024 Procedures Procedure Date Ordered Date Performed Result Body Sit e Debridement ulcer subq first 20sq cm 07/28/2024 N/A Encounters Encounter Location Date Provider Diagnosis [facility] [address] 07/28/2024 HARMAN JAMES Ulcer of right foot with fat layer exposed L97.512 ; Pressure injury of right foot, stage 3 L89.893 ; Peripheral arterial disease I73.9 and Drug-induced polyneuropathy G62.0 [facility] [address] 08/01/2024 HARMAN JAMES Ulcer of right foot with fat layer exposed L97.512 ; Pressure injury of right foot, stage 3 L89.893 ; Peripheral arterial disease I73.9 and Drug-induced polyneuropathy G62.0 [facility] [address] 08/19/2024 HARMAN JAMES Ulcer of right foot with fat layer exposed L97.512 ; Pressure injury of right foot, stage 3 L89.893 ; Peripheral arterial disease I73.9 ; Drug-induced polyneuropathy G62.0 ; Mixed hyperlipidemia E78.2 ; Hypercalcemia E83.52 and Stage 4 chronic kidney disease N18.4 [facility] [address] 09/09/2024 HARMAN JAMES Ulcer of right foot with fat layer exposed L97.512 ; Pressure injury of right foot, stage 3 L89.893 ; Peripheral arterial disease I73.9 ; Drug-induced polyneuropathy G62.0 and Mixed hyperlipidemia E78.2 [facility] [address] 09/20/2024 HARMAN JAMES Ulcer of right foot with fat layer exposed L97.512 ; Pressure injury of right foot, stage 3 L89.893 ; Peripheral arterial disease I73.9 ; Drug-induced polyneuropathy G62.0 ; Mixed hyperlipidemia E78.2 ; Thrombocytopenia D69.6 ; Acute anemia D64.9 ; Hyperbilirubinemia E80.6 and Stage 3b chronic kidney disease (CKD) N18.32 [facility] [address] 03/24/2025 HARMANARETHA KELSEYEY Non-traumatic ruptur e of right Achilles tendon M66.361 ; Weakness of right lower extremity R29.898 ; Open wound of left great toe, initial encounter S91.102A ; Elevated alkaline phosphatase level R74.8 ; Bilateral lower extremity edema R60.0 and Peripheral polyneuropathy G62.9 [facility] [address] 08/04/2024 HARMAN JAMES [facility] [address] 08/15/2024 HARMAN JAMES [facility] [address] 09/15/2024 HARMAN JAMES [facility] [address] 09/23/2024 HARMAN JAMES [facility] [address] 10/13/2024 HARMAN JAMES [facility] [address] [phone] 03/24/2025 HARMAN RAMIREZ [facility] [address] [place] [address] 03/27/2025 HARMAN RAMIREZ [facility] [address] [place] [address] 04/03/2025 HARMAN RAMIREZ [facility] [address] [phone] 04/03/2025 HARMAN RAMIREZ Assessments Encounter Date Diagnosis (ICD Code) Assessment Notes Treatment Notes Treatment Clinical Notes Section Notes 07/28/2024 Ulcer of right foot with fat layer exposed (ICD-10 - L97.512) Patient examined and evaluated. I reviewed his past medical history with him and his in detail. He presents with a pressure ulceration sub right 5th MTP. This seemed to start a week ago. I debrided the ulceration today removing all nonviable tissue excisionally with a sterile 15 blade. This exposed a granular base. No probing to bone or undermining. Measurements of the ulceration were 1.7cm x 1cm x 0.3cm. Wound cultures were taken and sent for gram stain, aerobic and anaerobic cultures. I temporarily started him on doxycycline 100mg twice a day until I have the cultures. I advised that I may need to change the antibiotics. He understood. I applied a sterile bandage and offloading apperature pad. I advised the bandage be changed once a day. They can continue to use the hydrofera blue. I stressed to stay off the foot and avoid any prolonged ambulation as this will only delay healing and make the wound worse. We discussed the use of a wheelchair to help with getting around.. I also discussed sending him back to the endovascular specialist here as it does seem like his PAD is progressing... He wished to seek out a specialist in a different area and will continue to follow with his scientific software engineer. I did review signs and symptoms of worsening infection and PAD with him and his in detail and advised the seek immediate aid if they see any of these. They both understood. I will see him back in my office next week to recheck the ulceration. I advised they call in the meantime with any additional questions or concerns. 07/28/2024 Pressure injury of right foot, stage 3 (ICD-10 - L89.893) 08/01/2024 Ulcer of right foot with fat layer exposed (ICD-10 - L97.512) Patient examined and evaluated. I reviewed his past medical history with him and his in detail. He presents with a pressure ulceration sub right 5th MTP. His cultures came back + for staph and kleibsella. He is on doxycycline and both are sensitive for this. The wound is doing much better and has decreased in size quite a bit. I applied calcium alginate today and a padded wound dressing and advised he start to do this daily. He will continue on doxy for another week. I will see him back in 3-4 weeks once he is back from [place]. I encouraged him to call if he has any questions or concerns. 08/01/2024 Pressure injury of right foot, stage 3 (ICD-10 - L89.893) 08/19/2024 Ulcer of right foot with fat layer exposed (ICD-10 - L97.512) Patient examined and evaluated. I reviewed his past medical history with him and his in detail. I spent over an hour reviewing his past labs and visits at [facility] over the past couple of years. He most recent lab work that was done in April of 2024 showed worsening CKD stage 4 with thrombocytopenia (114). He had a visit with [facility] on 05/19/24 for lower extremity leg wounds and was found to have FREIDA on the right of 0.58 and FREIDA on the left of 0.68. There was discussion of a vascular referral, but this was not done. Patient is not on any anticoagulation due to his hemorrhagic stroke last summer. He also is not on any cholesterol lowering medications due to adverse reactions. His last lipid panel was last summer showing cholesterol 317 and LDL of 209. He also has had consistent elevated glucose levels and macrocytic anemia. There has been a few times of elevated blood calcium with normal alk phos concerning for possible secondary hyperparathyroidism. No evidence of PTH levels done. His ulceration has improved some on exam today. My major concern is his elevated lipids, worsening PAD, worsening CKD, and likely underlying developement of diabetes mellitus. This combination is what is going to prevent full healing of this ulceration. I have requested him to get fasting labs done as soon as possible. I have ordered CBC, BMP, HgbA1c, ionized calcium, lipid panel, PTH, CRP and ESR. I am sure he will need follow up with his PCP based on these labs and I strongly encouraged him seeing vascular again for the arterial occlusions in order to get this ulceration to heal. I applied another sterile padded bandage and advise they continue to do this daily with the calcium alginate. I will see him back in 2 weeks or sooner if needed. 08/19/2024 Pressure injury of right foot, stage 3 (ICD-10 - L89.893) 09/09/2024 Ulcer of right foot with fat layer exposed (ICD-10 - L97.512) Patient examined and evaluated. I reviewed his past medical history with him and his in detail. We reviewed the recent lab results showing HgbA1c of 7.9 and elevated lipids and kidney function. He did share the results with his scientific software engineer who started him on Repatha. I did sent an urgent referral to his PCP hear about the new DM diagnosis. He has yet to see them. His ulceration is still present without any signs of infection. My major concern is his elevated lipids, worsening PAD, diabetes mellitus. This combination is what is going to prevent full healing of this ulceration. I stressed the importance of seeing vascular surgery when he gets to [place] and seeing wound care. He also will need to see his PCP here or there about the new onset of DM. I applied a new padded bandage and advised that his continue to do this day. He will follow back with me when he is back in town. I encouraged him to call if he or his have any additional questions or concerns. 09/09/2024 Pressure injury of right foot, stage 3 (ICD-10 - L89.893) 09/20/2024 Ulcer of right foot with fat layer exposed (ICD-10 - L97.512) Patient examined and evaluated. I reviewed all the information from his recent admission to [facility]. He has had this plantar sub 5th metatarsal head ulceration since the beginning of July. Wound cultures were taken early on and showed staph aureus and klebsiella. He has been on a few rounds of oral doxycycline with good response. We have been doing serial wound debridments with calcium alginate along with offloading bandaging. His has been changing this daily. I also ordered labs as he had not had anything done since April. Based on the last few years of labs that I could review at [facility] he has had worsening kidney function, thrombocytopenia, hyperbilirubinemia, elevated glucose, and elevated serum calcium. His newest labs before the hospital admission showed HgbA1c of 7.9 with continued hyperbilrubinemia, mildly elevated CRP with normal ESR, improving thrombocytopenia, normal serum calcium with normal PTH, elevated lipids, and ckd stage 3b. I did review these results in detail with him and discussed the new onset of DM2. He forwarded these results to his cardiology team at [facility] and they promptly started him on Repatha for the hyperlipidemia. I also notified his PCP team about the results and advised follow up for treatment for the DM2. Mr. Eaton also has peripheral arterial disease to both lower extremities with history of lower legs wounds and prolonged wound healing. He had bilateral arterial duplex at [facility] back in 05/2020 showing a 20cm occlusion in the right anterior tibial artery with 2 vessel runoff of the posterior tib and peroneal. Left anterior tib artery with 12cm occlusion with 2 vessel runoff of posterior tib and peroneal. No intervention done at this time. He also had some ABIs performed this past summer at the wound center he had been seeing for his leg wounds that revealed right FREIDA 0.58 and left FREIDA 0.68. Vascular follow up recommended, but has not happened. I had discussed with him and his the importance of getting the DM, lipids, and PAD under control so that we could optimize healing for the foot ulceration. They were both understanding and patient wished to pursue this in [place] once he got there. Over the last week his had to go on a business trip and patient was unable to change his bandage. He also admitted to being up on the foot quite a bit. Once his returned she noticed worsening drainage, some redness, and malodor. Doxycycline was restarted since his previous good response, culture sensitivities, and kidney function. Of note, patient also recently started the repatha during this time. He started to feel quite ill with fevers, chills, and myalgias. He also noted pain to the right foot, legs, and lower back. This was followed by a bout of dark colored urine and shortness of breath. He was taken to the hospital and found to be hypotensive. His labs showed worsening thrombocytopenia, anemia with elevated MCV, worsening kidney function, elevation of LFTs, and elevation in his CRP. He was admitted and given broad spectrum antibiotics for the right foot. MRI performed and showed no evidence of abscess or osteomyelitis. His blood pressure did stabilize. Blood cultures and urine cultures were negative. No abnormalities on his chest xray. No further imaging was done. Repatha was stopped. He was discharged on oral antibiotics. On evaluation today he appears fluid overloaded with abdominal swelling and lower leg edema. He has not taken lasix since his admission. He also has shortness of breath on exertion. His ulceration has no probing, undermining, or fluctuance. I debrided all the hyperkeratotic tissue and fibrotic tissue. He had a good bleeding wound base. New wound cultures were taken. He does have some erythema to the dorsum of the 5th MTP. He's afebrile. I applied a new sterile bandage with offloading. I advised taking a dose of his lasix once he gets home. I stressed my concerns with him about the ulceration and his overall health. Its difficult to be sure that his worsening symptoms requiring the admission were solely based on a soft tissue infection from the ulceration and not any other process. There is a chance that he also had a drug reaction from the repatha. I have concerns about his anemia, thrombocytopenia and elevated LFTs. ? if this could be hemolysis (acquired TTP/ microangiopathic hemolytic anemia vs severe pernicious anemia). I strongly recommend that this is looked in further with possible LDH, haptoglobin, peripheral blood smear, with B12, [id number] testing. ? drug induced, infection induced, vs cancer related. I have spent some time reviewing records that I can access at [facility]. 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 There was ? of probable IPMN and cardiac surgeon advised further imaging on this. I do not see any further work up. With the new DM2 diagnosis and the worsening labs, I question if this could be a culprit and ?malignancy. He has had colon cancer in the past. He also has worsening kidney function over the last couple of years. This may be a result of the lasix, but he also has psoriatic arthropathy and a family history of lupus. 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 This also could be part of the reason that he has poor healing and the new onset of DM2. I also question if the kidney damage could be related to an autoimmune process due the history. Since his TAVR he had been on eliquis and aspirin. This was stopped abuptly in May of 2023 after he suffered a hemorrhagic stroke. He has since had worsening PAD symptoms and thrombocytopenia. He definitely needs further work up for numerous issues that have been ongoing. It is very important for him to see vascular once he gets to [place] and also have wound care on board for the foot. He also will need cardiology, nephrology, and possibly heme/onc as well. He understands that this is important. I want him to continue on the oral augmentin for now. Continue daily bandages to the foot. I also advised he needs to focus on resting. I will notify them once I have the new cultures back. I encouraged him and his to call me if they have any further questions or concerns. He does plan to leave this week to head to [place]. 09/20/2024 Pressure injury of right foot, stage 3 (ICD-10 - L89.893) 03/24/2025 Weakness of right lower extremity (ICD-10 - R29.898) 03/24/2025 Non-traumatic rupture of right Achilles tendon (ICD-10 - M66.361) This is an outpatient visit for evaluation and management of an established patient, which required appropriate review of pertinent medical history, review of any previous imaging, review of all previous records, and examination and decision-making. Time was 45 minutes spent in review of all these facets including face to face discussion with the patient regarding my findings and in discussion of a current and future treatment plan. I reviewed the recordds that were brought in along with lab results on his portal. Mr. Eaton is a medically complex patient with numerous co morbidities. 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 He also has venous insufficiency and peripheral arterial disease to both lower extremities with significant dermal atrophy. This has lead to numerous lower leg and foot wounds requiring extensive wound care and multiple rounds of antibotics. This then lead to an atraumatic rupture of the right Achilles midsubstance. He is not a surgical candidate and was treated with conservatively in [place] 12 weeks in a CAM boot with removable wedges and PT. His PT was cut short due to another wound. He has since been ambulating without any bracing. He has obvious calf atrophy and palpable deficit on exam. I think he would benefit from some more PT as he felt good while doing this. I am also going to set him up for a custom right AFO as he is high risk for calcaneal gait that could lead to ulceration. This will help stabilize him better on the right. He and his were agreeable with this. He also has a stable eschar to the distal aspect of the left hallux that developed from a friction blister. This was thoroughly imaged for deeper infection and treatmed with antibiotics. The area is well healed over and dry. I advised that they no longer need to apply the betadine. He can keep a light bandaid over the area until the scabbing flakes off. He can also start to get this foot wet again. I did review a lot his more recent labs. These seem to be improving since the last time I saw him. His lipids are in the normal range. HgbA1c is now 6.5. He still has thrombocytopenia, but the platelets have improved to 132. His kidney function is still elevated with CKD stage 3b. Inflammatory markers are relatively normal. The only new findings I am seeing is elevation in his alkaline phosphatase with a high normal serum calcium of 10.2. His vit D is also a bit elevated. This is concerning for a possible secondary hyperparathyroidism starting. I will recheck his hepatic function panel today with phosphorus, serum calcium, gamma-glutanyl transferase (GGT), and serum PTH. I also discussed the importance of taking his lasix as prescribed otherwise he is going to have significant fluid overload and this will create edema and shortess of breath. It will also interfere with his ability to get adequate rest. He really needs to avoid barefoot walking and be checking his feet daily for any changes. I will await the lab results and get him started with PT. I will also send over a Rx for the custom AFO. We will check back in 6-8 weeks or sooner if needed. I encouragd him and his to call me if there are any further questions or concerns. 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) 03/24/2025 Elevated alkaline phosphatase level (ICD-10 - R74.8) 09/20/2024 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) 03/24/2025 Bilateral lower extremity edema (ICD-10 - R60.0) 09/20/2024 Mixed hyperlipidemia (ICD-10 - E78.2) 08/19/2024 Mixed hyperlipidemia (ICD-10 - E78.2) 09/09/2024 Mixed hyperlipidemia (ICD-10 - E78.2) 08/19/2024 Hypercalcemia (ICD-10 - E83.52) 09/20/2024 Thrombocytopenia (ICD-10 - D69.6) 03/24/2025 Peripheral polyneuropathy (ICD-10 - G62.9) 09/20/2024 Acute anemia (ICD-10 - D64.9) 08/19/2024 Stage 4 chronic kidney disease (ICD-10 - N18.4) 09/20/2024 Hyperbilirubinemia (ICD-10 - E80.6) 09/20/2024 Stage 3b chronic kidney disease (CKD) (ICD-10 - N18.32) Plan Of Treatment Pending Test Test Name Order Date GGT 03/24/2025 X ray : Foot, left 3v 12/21/2020 I&D superficial 02/20/2021 Debridement ulcer subq first 20sq cm 03/2024 DRAIN/INJECT, SMALL JOINT/BURSA 02/21/20 21 DRAIN/INJECT, SMALL JOINT/BURSA 06/03/20 21 DRAIN/INJECT, SMALL JOINT/BURSA 12/21/19 21 LIPID PANEL 08/19/2024 Insurance Providers Payer Name Payer Address Payer Phone Subscriber Number Group Number Insured Name Patient Relationship to Insured Coverage Start Date Coverage End Date [employer] [place] [address] [place] [id number] [place] Eaton Self - patient is the insured [employer] [address] [place] [address] [id number] [place] Eaton Self - patient is the insured Medications Administered Medication Instructions Date of Administration Dosage Notes Dexamethasone 12/21/2020 2 mg Dexamethasone 02/20/2021 2 mg Kenalog 06/03/2021 20 mg Medical (General) History Medical History History ICD Code cardiomyopathy with EF 20-25% Gout psoriatic arthritis Hx of colon cancer at age 69. Treated wi th surgery and chemotherapy. 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 IPMN pancreas incidentally found on im aging Hx of clostridium difficile Non traumatic right Achilles rupture zach ated conservatively Surgical History Surgery Date(Month/Year) colon surgery for cancer cardioversion for afib TAVR, bovine Hospitalization History Reason Date(Month/Year) Left paramedial pontine hemorrhage 3 right foot infection/drug re action. Hypotension, fever, worsening thrombocytopenia and anemia 09/16/2024
--- OUTSIDE RECORDS SUMMARY | 2025-05-25 08:08 | XMS_ITS ---
Author Name [facility] Organization Unknown History of Medication Use Medication Directions Dispensed Refills Start Date End Date Stat us Apoaequorin (PREVAGEN) 10 MG Cap Take by mouth. active aspirin (ECOTRIN) 325 MG EC tablet Take 325 mg by mouth daily. active cholecalciferol (VITAMIN D3) 1000 UNITS tablet Take 1,000 Units by mouth daily. active coenzyme Q10 (CO Q 10) 100 MG capsule Take 100 mg by mouth daily. active Krill Oil 500 MG Cap Take by mouth. 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 ProblemAct CCT Encounters Encounter Type Encounter Reason Primary Diagnosis Location Date Ambulatory Drug-induced polyneuropathy [facility] 09/12/2021 Ambulatory Drug-induced polyneuropathy [facility] 09/11/2021 Ambulatory Drug-induced polyneuropathy [facility] 09/10/2021 Ambulatory Drug-induced polyneuropathy [facility] 09/09/2021 Ambulatory Drug-induced polyneuropathy [facility] 09/04/2021 Care Team Organization Name Specialty Phone Email Start Date End Da te [facility] HUSSAIN MARSHALL Primary [facility] 09/12/202107/11 [facility] HUSSAIN MARSHALL Primary Care 09/04/202109/12
--- OUTSIDE RECORDS SUMMARY | 2025-05-25 08:08 | XMS_ITS | Encounter Summary ---
Author Organization [facility] Address [address] [place] [address] Care Team Providers Care Filling Hauler Weaving Name Role Phone Unknown Unavailable Unknown Unavailable Lula Baum NP Primary Care Provider [phone] Encounter Details Date Type Department Care Team (Late st Contact Info) Description 12/16/2016 Scanned Document [facility] [address] [place] [address] [phone] Liv White PA [address] [place] [address] Social History Tobacco Use Types Packs/Day Years Used Date Smoking Tobacco: Never Alcohol Use Standard Drinks/Week Comments Yes 0 (1 standard drink = 0.6 oz pur e alcohol) Sex and Gender Information Value Date Recorded Sex Assigned at Not on file Legal Sex Male 4:23 PM EST Gender Identity Not on file Sexual Orientation Not on file documented as of this encounter Plan of Treatment Not on file documented as of this encounter Visit Diagnoses Not on filedocumented in this encounter Care Teams Filling Hauler Weaving Relationship Specialty Start Date End Date Lula Baum NP [address] [place] [address] PCP - General Geriatric Medicine 09/04/21 Unknown Unknow Provider Address 12/16/16 Unknown Unknow Provider Address Referring Provider 12/16/16 documented as of this encounter
== END 2025-05-25 08:04 | disposition home or self-care (01) ==
LOC: HO.HMGCX 08:03
PROVIDERS: PCP Physician Assistant Medical; Visit Provider Internal Medicine Nephrology
DX: N18.4 Chronic kidney disease, stage 4 (severe) (principal)
CPT/HCPCS: 76775; 93975

== ENCOUNTER → 2025-05-25 08:08 | Outpatient (BNV) | payer MEDICARE, OTHER, SELFPAY | PROVIDERS: PCP Physician Assistant Medical; Visit Provider Specialist | DX: N18.4 Chronic kidney disease, stage 4 (severe) (principal) | CPT/HCPCS: 76775; 93975 ==

== ENCOUNTER 2025-05-29 09:11 | Outpatient (REF) | payer MEDICARE, OTHER, SELFPAY ==
--- OUTSIDE RECORDS SUMMARY | 2025-01-17 09:00 | XMS_ITS ---
Author Organization [facility] Address [address] [facility] [address] [place] [address] Care Team Providers Care Entry Level Project Engineer Name Role Phone Sarika UTILITY WORKER [place], Lula Primary Care Provider Ronaldo Singh Unavailable [phone] REASON FOR VISIT L ankle wound Encounters Encounter Location Date Provider Diagnosis [facility] [address] [facility] [address] [place] [address] 01/17/2025 Ronaldo Gale Plan Of Treatment Next Appt Details Provider Name:Ronaldo Gale, 05/30/2025 10:30:00 AM, [address], [place], [address], Progress Notes * [place] EATONDOB:1945 ( 79 yo M)Acc No.[id number]:01/17/2025 Returning Patient Visit Patient: [place] PRUITT Provider: Thomas Gale NP :1945 A ge:79 Y S ex:Male Date:01/17/2025 Address:[address], [facility] Pcp:Lula Baum NP Subjective: * Chief Complaints: * 1 . L ankle wound. * Medical History: Objective: * Vitals: Assessment: Plan: * Treatment: * Billing Information: * Visit Code: * Procedure Codes: * Electronic signature of Chase Gale NP on 05/29/2025 at 09:38 AM EDT Sign off status: Pending * Provider: Thomas Gale NP Date: 01/17/2025 Generated for Katie corbett/Pily/eTransmitting on: 05/29/2025 09:38 AM EDT
--- OUTSIDE RECORDS SUMMARY | 2025-05-29 09:38 | XMS_ITS | Patient Health Record ---
Author Organization [facility] Address [address] [place] [address] Care Team Providers Care Spinning Operator Name Role Phone Stefan Jeffers MD Primary Care Provider Unavaila ble Ene Barr Unavailable [phone] Dunia Alejo MD Unavaila ble Allergies No Known Allergies Results Component Value Reference Range Notes Hep B and C Screen Reviewed date:11/21/2024 11:43:16 AM Interpretation: Performing Lab:[facility] [address] [id number], Phone - [phone], Director - Namitakmeghan Notes/Report: HBsAg Screen Negative Negative Hep B [...] Incubated) Reviewed date:11/21/2024 11:43:16 AM Interpretation: Performing Lab:[facility] [address] [id number], Phone - [phone], Director - Namitakmeghan Notes/Report: QuantiFERON Incubation Incubation performed. QuantiFERON-TB Gold [...] (14) Reviewed date:11/21/2024 11:43:16 AM Interpretation: Performing Lab:[facility] [place], [address] [place] [id number], Phone - [phone], Director - Bindu Notes/Report: Glucose 109 70-99 [...] Reviewed date:11/21/2024 11:43:16 AM Interpretation: Performing Lab:[facility] [address] [place] [id number], Phone - [phone], Director - Bindu Notes/Report: C-Reactive Protein, Quant 25 0-10 mg/L CBC With Differential/Platel et Reviewed date:11/21/2024 11:43:16 AM Interpretation: Performing Lab:[facility] [address] [place], [place] [id number], Phone - [phone], Director - Bindu Notes/Report: WBC 10.2 3.4-10.8 [...] show increased immature granulocytes without clinical significance.) Urine Culture, Routine Reviewed date:03/08/2025 08:20:27 AM Interpretation: Performing Lab:[facility] [address] [place], [place] [id number], Phone - [phone], Director - Bindu Notes/Report: Clinical Information:SRC:UR Clinical Information:SRC:UR Urine Culture, Routine Final report Result 1 Comment Culture shows less than 10,000 colony forming units of bacteria per milliliter of urine. This colony count is not generally considered to be clinically significant. C-Reactive Protein, Quant Reviewed date:03/08/2025 08:20:27 AM Interpretation: Performing Lab:[facility] [address] [place] [id number], Phone - [phone], Director - Bindu Notes/Report: Clinical Information:SRC:UR C-Reactive Protein, Quant 20 0-10 mg/L CBC With Differential/Platel et Reviewed date:03/08/2025 08:20:27 AM Interpretation: Performing Lab:[facility] [address] [place] [id number], Phone - [phone], Director - Bindu Notes/Report: Clinical Information:SRC:UR WBC [...] Complete Reviewed date:03/08/2025 08:20:27 AM Interpretation: Performing Lab:[facility] [address] [place] [id number], Phone - [phone], Director - Bindu Notes/Report: Clinical Information:SRC:UR Clinical Information:SRC:UR Specific [place] 1.011 1.005-1.030 pH 6.0 5.0-7.5 Urine-Color Yellow [...] seen /lpf Bacteria None seen None seen/Few Reason For Referral No Information Medications Medication [...] W/U Status Risk Notes Problem Psoriasis vulgaris (274552212) Psoriasis vulgaris (L40.0) Active confirmed Problem Psoriatic arthritis (disorder) (082643593) Other psoriatic arthropathy (L40.59) Active confirmed Problem Psoriasis (5099105) Other psoriasis (L40.8) Active confirmed Problem Chronic fatigue syndrome (disorder) (15957906) Chronic fatigue, unspecified (R53.82) Active confirmed Problem Long-term current use of systemic steroid (0755291863430 03) assistant terminal manager (current) use of systemic steroids (Z79.52) Active confirmed Vital Signs Heart Rate 69 /min 03/06/2025 Temperature 97.9 degrees Fahrenheit 03/06/2025 Blood pressure diastolic 69 mm Hg 03/06/2025 Height 70 in 03/06/2025 Blood pressure systolic 110 mm Hg 03/06/2025 Weight 173.5 lbs 03/06/2025 BMI 24.89 kg/m2 03/06/2025 Encounters Encounter Location Date Provider Diagnosis [facility] [address] [place], [place] [id number] 11/14/2024 Ene Barr Other psoriatic arthropathy L40.59 ; Other psoriasis L40.8 ; jail (current) use of systemic steroids Z79.52 ; jail high risk medication (other) Z79.899 and Chronic fatigue, unspecified R53.82 [facility] [address] [place], [place] [id number] 02/06/2025 Ene Barr Other psoriatic arthropathy L40.59 ; Other psoriasis L40.8 ; assistant terminal manager (current) use of systemic steroids Z79.52 and assistant terminal manager high risk medication (other) Z79.899 [facility] [address] [place], [place] [id number] 03/06/2025 Ene Barr Other psoriatic arthropathy L40.59 ; Other psoriasis L40.8 ; jail (current) use of systemic steroids Z79.52 ; assistant terminal manager high risk medication (other) Z79.899 and Dysuria R30.0 [facility] [address] [place], [place] [id number] 01/06/2025 [facility] [address] [place], [place] [id number] 02/15/2025 Ene Barr Other psoriatic arthropathy L40.59 [facility] [address] [place], [place] [id number] 04/18/2025 [facility] [address] [place], [place] [id number] 04/28/2025 Ene Barr Other psoriatic arthropathy L40.59 [facility] [address] [place], [place] [id number] 11/15/2024 Ene Barr Other psoriatic arthropathy L40.59 [facility] [address] [place], [place] [id number] 11/28/2024 [facility] [address] [place], [place] [id number] 11/28/2024 Ene Momo Psoriasis vulgaris L40.0 [facility] [address] [place], [place] [id number] 11/29/2024 [facility] [address] [place], [place] [id number] 12/01/2024 [facility] [address] [place], [place] [id number] 12/01/2024 [facility] [address] [place], [place] [id number] 12/17/2024 [facility] [address] [place], [place] [id number] 12/21/2024 Ene Barr Assessments Encounter Date Diagnosis [...] Other psoriatic arthropathy (ICD-10 - L40.59) 03/06/2025 jail (current) use of systemic steroids (ICD-10 - [...] to return until they get back 11/14/2024 jail (current) use of systemic steroids (ICD-10 - [...] 60 minutes spent on todays encounter 02/06/2025 jail (current) use of systemic steroids (ICD-10 - [...] return to clinic in 2-3 months 02/06/2025 assistant terminal manager high risk medication (other) (ICD-10 - Z79.899) [...] return to clinic in 2-3 months 11/14/2024 assistant terminal manager high risk medication (other) (ICD-10 - Z79.899) [...] 60 minutes spent on todays encounter 03/06/2025 assistant terminal manager high risk medication (other) (ICD-10 - Z79.899) [...] Name:Ene Barr, Brisa 12/04/2025 02:30:00 PM, [address], [place], [place], [id number], Insurance Providers Payer Name Payer Address Payer Phone Subscriber Number Group Number Insured Name Patient Relationship to Insured Coverage Start Date Coverage End Date [employer] [address] [facility] [id number] [id number] [place] Eaton Self - patient is the insured [facility] [address] [address] [place] [address] [id number] [place] Eaton Self - patient is the insured Medical (General) History Medical History History ICD Code cardiomyopathy, EF 20-25% in 2021 gout psoriatic arthritis - tx methotrexate (m alaiván), Enbrel colon cancer, age 69, tx surgery and justina mo 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
--- OUTSIDE RECORDS SUMMARY | 2025-05-29 09:38 | XMS_ITS | Encounter Summary ---
Author Organization [facility] Address [address] [place] [address] Care Team Providers Care Poke In Name Role Phone Unknown Unavailable Unknown Unavailable Lula Baum NP Primary Care Provider [phone] Encounter Details Date Type Department Care Team (Late st Contact Info) Description 12/16/2016 Scanned Document [facility] [address] [place] [address] [phone] Liv White PA [address] [place] [address] Social History Tobacco Use Types Packs/Day Years [...] on filedocumented in this encounter Care Teams Poke In Relationship Specialty Start Date End Date Lula Baum NP [address] [place] [address] PCP - General Geriatric Medicine 09/04/21 Unknown Unknow Provider Address 12/16/16 Unknown Unknow Provider Address Referring Provider 12/16/16 documented as of this encounter
--- OUTSIDE RECORDS SUMMARY | 2025-05-29 09:39 | XMS_ITS | Patient Health Record ---
Author Organization [facility] Address [address] [facility] [place] [address] [place] [address] Care Team Providers Care Crane Ladle Person Name Role Phone Lula Salinas Primary Care Provider Unavaila alondra HARMAN RAMIREZ Unavailable [phone] Allergies No Known Allergies Results Component Value Reference Range Notes [id number] Reviewed date:04/03/2025 09:33:35 AM Interpretation: Performing Lab:[facility], [address] [place] [address], Phone - [phone], Director - MDJodry Notes/Report: GGT 223 0-65 IU/L Hepatic Function Panel (7)-3 [id number] Reviewed date:04/03/2025 09:33:35 AM Interpretation: Performing Lab:[facility], [address] [place] [address], Phone - [phone], Director - MDJodry Notes/Report: Protein, Total 7.3 6.0-8.5 g/dL Albumin 4.0 3.8-4.8 g/dL Bilirubin, Total 2.6 0.0-1.2 mg/dL Bilirubin, Direct 1.33 0.00-0.40 mg/dL Alkaline Phosphatase 167 44-121 IU/L AST (SGOT) 56 0-40 IU/L ALT (SGPT) 34 0-44 IU/L PTH, Intact-[id number] Reviewed date:04/03/2025 09:33:35 AM Interpretation: Performing Lab:[facility], [address] [place] [address], Phone - [phone], Director - MDJodry Notes/Report: PTH, Intact 21 15-65 pg/mL Phosphorus-[id number] Reviewed date:04/03/2025 09:33:35 AM Interpretation: Performing Lab:[facility], [address] [place] [address], Phone - [phone], Director - MDJodry Notes/Report: Phosphorus 4.5 2.8-4.1 mg/dL Calcium-159580 Reviewed date:04/03/2025 09:33:35 AM Interpretation: Performing Lab:[facility], [address] [place] [address], Phone - [phone], Director - Griselda Notes/Report: Calcium 9.8 8.6-10.2 mg/dL Comp. Metabolic Panel (14)-3 [id number] Reviewed date:08/24/2024 09:01:49 AM Interpretation: Performing Lab:[facility], [address] [place] [address], Phone - [phone], Director - Griselda Notes/Report: Glucose 132 70-99 mg/dL BUN 38 [...] 0-40 IU/L ALT (SGPT) 20 0-44 IU/L Lipid Panel-[id number] Reviewed date:08/24/2024 09:01:49 AM Interpretation: Performing Lab:[facility], [address] [place] [address], Phone - [phone], Director - Alfredoy Notes/Report: Cholesterol, Total 240 100-199 mg/dL Triglycerides 91 0-149 mg/dL HDL Cholesterol 70 >39 mg/dL VLDL Cholesterol Lg 16 5-40 mg/dL LDL Chol Calc (NIH) 154 0-99 mg/dL PTH, Intact-584993 Reviewed date:08/24/2024 09:01:49 AM Interpretation: Performing Lab:[facility], [address] [place] [address], Phone - [phone], Director - Griselda Notes/Report: PTH, Intact 37 15-65 pg/mL C-Reactive Protein, Quant-00 6627 Reviewed date:08/24/2024 09:01:49 AM Interpretation: Performing Lab:[facility], [address] [place] [address], Phone - [phone], [facility] Notes/Report: C-Reactive Protein, Quant 13 0-10 mg/L [facility]-627662 Reviewed date:08/24/2024 09:01:49 AM Interpretation: Performing Lab:[facility], [address] [place] [address], Phone - [phone], Director - [facility] Notes/Report: Sedimentation Rate-[facility] Hospitalren 6 0-30 mm/hr CBC With Differential/Platel et-[id number] Reviewed date:08/24/2024 09:01:49 AM Interpretation: Performing Lab:[facility], [address] [place] [address], Phone - [phone], Director - SDSorin Notes/Report: WBC 8.5 3.4-10.8 x10E3/uL RBC 4.93 [...] % Immature Grans (Abs) 0.1 0.0-0.1 x10E3/uL Calcium, Ionized, Serum-0048 04 Reviewed date:08/24/2024 09:01:49 AM Interpretation: Performing Lab:[facility], [address] [facility], Phone - [phone], Director - Griselda Notes/Report: Calcium, Ionized, Serum 5.1 4.5-5.6 mg/dL Hemoglobin U8d-[id number] Reviewed date:08/24/2024 09:01:49 AM Interpretation: Performing Lab:[facility], [address] [facility], Phone - [phone], Director - Griselda Notes/Report: Hemoglobin A1c 7.9 4.8-5.6 % . Prediabetes: 5.7 - 6.4 Diabetes: >6.4 Glycemic control for adults with diabetes: <7.0 Anaerobic/Aerobic/Gram Stain -[id number] Reviewed date:08/01/2024 12:19:40 PM Interpretation: Performing Lab:[facility], [address], [address], [place], Phone - [phone], Director - [facility] Notes/Report: Clinical Information:right foot ulceration. Clinical Information:right [...] Result 3 Rare gram negat kavin rods. Reason For Referral Reason New diagnosis of irineo forrester with recent HgbA1c 7.9, Nonhealing ulceration right foot. 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 Problem 798785800 Ulcer of right f oot with fat layer exposed (L97.512) Active confirmed Problem 57199080128637251 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 Problem 344075015 Peripheral arter ial disease (I73.9) Active confirmed Problem 46059505 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) Active confirmed Problem 4739818191613418 Acute gout of r ight foot, unspecified cause (M10.9) Active confirmed Problem 515699199 Stage 4 chronic kidney disease (N18.4) Active confirmed Problem 914978136 Thrombocytopenia (D69.6) Active confirmed Problem 799088326 Pressure injury of right foot, stage 3 (L89.893) Active confirmed Problem 421095201689670 Type 2 diabetes mellitus with other skin [...] N/A Encounters Encounter Location Date Provider Diagnosis [facility] [address] 07/28/2024 HARMAN JAMES Ulcer of right foot with fat layer exposed L97.512 ; Pressure injury of right foot, stage 3 L89.893 ; Peripheral arterial disease I73.9 and Drug-induced polyneuropathy G62.0 [facility] [address] 08/01/2024 HARMAN JAMES Ulcer of right foot with fat layer exposed L97.512 ; Pressure injury of right foot, stage 3 L89.893 ; Peripheral arterial disease I73.9 and Drug-induced polyneuropathy G62.0 [facility] [address] 08/19/2024 HARMAN JAMES Ulcer of right foot with fat layer exposed L97.512 ; Pressure injury of right foot, stage 3 L89.893 ; Peripheral arterial disease I73.9 ; Drug-induced polyneuropathy G62.0 ; Mixed hyperlipidemia E78.2 ; Hypercalcemia E83.52 and Stage 4 chronic kidney disease N18.4 [facility] [address] 09/09/2024 HARMAN JAMES Ulcer of right foot with fat layer exposed L97.512 ; Pressure injury of right foot, stage 3 L89.893 ; Peripheral arterial disease I73.9 ; Drug-induced polyneuropathy G62.0 and Mixed hyperlipidemia E78.2 [facility] [address] 09/20/2024 HARMAN JAMES Ulcer of right foot with fat layer exposed L97.512 ; Pressure injury of right foot, stage 3 L89.893 ; Peripheral arterial disease I73.9 ; Drug-induced polyneuropathy G62.0 ; Mixed hyperlipidemia E78.2 ; Thrombocytopenia D69.6 ; Acute anemia D64.9 ; Hyperbilirubinemia E80.6 and Stage 3b chronic kidney disease (CKD) N18.32 [facility] [address] 03/24/2025 HARMANARETHA KELSEYEY Non-traumatic ruptur e of right Achilles tendon M66.361 ; Weakness of right lower extremity R29.898 ; Open wound of left great toe, initial encounter S91.102A ; Elevated alkaline phosphatase level R74.8 ; Bilateral lower extremity edema R60.0 and Peripheral polyneuropathy G62.9 [facility] [address] 08/04/2024 HARMAN JAMES [facility] [address] 08/15/2024 HARMAN JAMES [facility] [address] 09/15/2024 HARMAN JAMES [facility] [address] 09/23/2024 HARMAN JAMES [facility] [address] 10/13/2024 HARMAN JAMES [facility] [address] [phone] 03/24/2025 HARMAN RAMIREZ [facility] [address] [place] [address] 03/27/2025 HARMAN RAMIREZ [facility] [address] [place] [address] 04/03/2025 HARMAN RAMIREZ [facility] [address] [phone] 04/03/2025 HARMAN RAMIREZ Assessments Encounter Date Diagnosis [...] 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 I did review signs and symptoms of [...] reviewing his past labs and visits at [facility] over the past couple of years. He most recent lab work that was done in April of 2024 showed worsening CKD stage 4 with thrombocytopenia (114). He had a visit with [facility] on 05/19/24 for lower extremity [...] He did share the results with his mechanical engineering coop who started him on Repatha. I did [...] the information from his recent admission to [facility]. He has had this plantar sub [...] of labs that I could review at [facility] he has had worsening kidney function, [...] results to his cardiology team at [facility] and they promptly started him on Repatha for the hyperlipidemia. I also notified his PCP team about the results and advised follow up for treatment for the DM2. Mr. Eaton also has peripheral arterial disease to both lower extremities with history of lower legs wounds and prolonged wound healing. He had bilateral arterial duplex at [facility] back in 05/2020 showing a 20cm occlusion [...] and patient wished to pursue this in [place] once he got there. Over the last [...] LDH, haptoglobin, peripheral blood smear, with B12, [id number] testing. ? drug induced, infection induced, vs cancer related. I have spent some time reviewing records that I can access at [facility]. I did discover that back when [...] to see vascular once [place] and also have wound care on board [...] to leave this week to head to [place]. 09/20/2024 Pressure injury of right foot, stage [...] candidate and was treated with conservatively in [place] 12 weeks in a CAM boot with [...] of [place] [address] [place] [phone] [id number] [place] Eaton Self - patient is the insured [employer] [address] [place] [address] [id number] [place] Eaton Self - patient is the [...]
[2025-05-29 12:38] LABS: Total Volume 24 Hour Urine 1875 mL
[2025-05-29 13:15] LABS: Anion Gap 13 (12-20); Blood Urea Nitrogen 53 mg/dL (9-16); Calcium 9.7 mg/dL (8.4-10.2); Carbon Dioxide 24 mmol/L (22-29); Chloride 105 mmol/L (96-108); Estimated Glomerular Filt Rate 35; Potassium 4.1 mmol/L (3.3-5.1); Sodium 138 mmol/L (135-145)
[2025-05-29 13:53] LABS: Creatinine (CrCl) 1.85 mg/dL (0.5-1.4)
[2025-05-29 14:56] LABS: Creatinine, mg/dL 61.95
== END 2025-05-29 09:12 | disposition home or self-care (01) ==
LOC: HO.HMGCLDS 09:11
PROVIDERS: PCP Physician Assistant Medical; Visit Provider Internal Medicine Nephrology
DX: N18.4 Chronic kidney disease, stage 4 (severe) (principal)
CPT/HCPCS: 36415; 80051; 82310; 82565; 82575; 84520

== ENCOUNTER 2025-06-22 13:39 | Outpatient (AMB) | payer MEDICARE, OTHER, SELFPAY ==
--- OUTSIDE RECORDS SUMMARY | 2025-03-28 10:45 | XMS_ITS ---
Author Organization [facility] Address [address] [place] [address] Care Team Providers Care Chest Pain Coordinator Name Role Phone Zeyad LAYTON, Stefan Primary Care Provider UnavailEne Pyle [phone] Sapna LAYTON, Dunia Norman Unavaila ble REASON FOR VISIT PSA Encounters Encounter Location Date Provider Diagnosis [facility] [address] [place], [place] [phone] 03/28/2025 Ene Barr Plan Of Treatment Next Appt Details Provider Name:Ene Barr, 0 12/04/2025 02:30:00 PM, [address], [place], [place], [phone], Progress Notes * [place] EATON LDOB:1945 (79 yo M)Acc No.[id number]:03/28/2025 Progress Notes Patient: Oneil PRUITTluz Devine Provider: Tiffanie Barr MD :1945 A ge:79 Y S ex:Male Date:03/28/2025 Address:[address] [place], [id number] Pcp:Stefan Jeffers MD Subjective: * Chief Complaints: * 1 . PSA. * Medical History: Objective: * Vitals: Therapeutic Interventions: Assessment: Plan: * Treatment: * Images: * Electronic signature of Makenzie sharri Barr on 06/22/2025 at 12:53 PM CDT Sign off status: Pending * Provider: Tiffanie Barr MD Date: 0 03/28/2025 Generated for Printi ng/Pily/Meleitting on: 0 06/22/2025 12:53 PM CDT
--- NOTE | 2025-06-22 13:46 | HO.NEPHOV_ITS ---
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 He has vascular disease including moderate stenosis of both carotid arteries. He is on lipid lowering medications. He has H/O CVA of meg. He has H/O AVR as well as cardiomyopathy/ CHF and is on Farxiga, lasix, metoprolol. He has gout and is on Uloric. He also takes Coseyntyx. He has been having elevated liver enzymes( AST, GGT and Alk Phos). He recently had AMS which the family felt had improved with hydration. He denies any known LUPLILO or PAD. He has no H/O amyloidosis. His recent serum creatinine has been 1.94. His recent RUQ USS showed some ascites with mildly nodular hepatic contour suggestive of cirrhosis. 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 Atrial fibrillation Surgical History S/P ablation of atrial fibrillation S/P partial colectomy H/O colonoscopy with polypectomy H/O aortic valve replacement Social History Alcohol intake: former Patient Tobacco Use Status: Never used Tobacco Review of Systems Const All systems reviewed & are unremarkable except as noted in HPI and below Physical Exam Vital Signs: Last Vital Signs Pulse 69 06/22/25 13:52 BP 100/60 06/22/25 13:52 Pulse Ox 98 06/22/25 13:52 Oxygen Delivery Method Room Air 06/22/25 13:52 BMI result Body Mass Index 24.4 Const General: comfortable and no acute distress Orientation/consciousness: patient oriented x3 HEENT Head: Yes normocephalic Mouth: Normal oral and palatal mucosa present Eyes EOM: EOMs intact bilaterally Neck Neck: Yes supple Resp Auscultation: clear to auscultation bilaterally Cardio Jugular venous distension: no JVD Rate: regular rate GI Palpation (GI): Soft to palpation Auscultation: normal bowel sounds General: Yes no CVA tenderness Back/Spine/Pelvis Back: no CVA tenderness Skin General skin exam: no rashes or lesions noted Neuro General: patient oriented x3 and moves all extremities Extrem General: Yes no pedal edema Results Reviewed Nephrology Results: Sodium, (135-145) 138 mmol/L 05/29/25 Potassium, (3.3-5.1) 4.1 mmol/L 05/29/25 Chloride, (96-108) 105 mmol/L 05/29/25 Carbon Dioxide, (22-29) 24 mmol/L 05/29/25 BUN, (9-16) 53 mg/dL H 05/29/25 Creatinine, (0.5-1.4) 1.85 mg/dL H 05/29/25 Calcium, (8.4-10.2) 9.7 mg/dL 05/29/25 Renal US 05/25/25 Assessment & Plan Assessment & Plan (1) CKD stage 3b, GFR 30-44 ml/min: Code(s): N18.32 - Chronic kidney disease, stage 3b Category: Medical Plan [place] has progressive renal disease likely due to multifactorial etiology. He has nodularity of liver suggestive of cirrhosis. He has H/O AVR as well as cardiomyopathy. He is not sure the liver cirrhosis is due to cardiac or liver etiology. He has been on various medications for psoriatic arthropathy. Progressive renal dysfunction from AIN or due to vascular disease with decompensation secondary to low BP / altered hemodynamics causing hemodynamic A KI needs to be considered. He has no H/O known amyloidosis( has cardiomyopathy as well as renal dysfunction). He is on Farxiga and his cardiac status is compensated. He has B/L LUPILLO by imaging. He may be a great candidate for spironolactone if his hemodynamics permit. His creatinine clearance is 43 mls/mt by 24 hour urine collection. I shall consider doing immunofixation as well as a renal biopsy if his creatinine worsens. He needs to closely follow up with his aircraft systems technician and needs to see a armature winder automotive. Further management is pending evolving data Orders: Orders Creatinine 3 Months N18.32 - Chronic kidney disease, stage 3b Vitamin D 25-OH Total 3 Months N18.32 - Chronic kidney disease, stage 3b Parathyroid Hormone Intact 3 Months N18.32 - Chronic kidney disease, stage 3b Phosphorus 3 Months N18.32 - Chronic kidney disease, stage 3b Blood Urea Nitrogen 3 Months N18.32 - Chronic kidney disease, stage 3b Electrolytes 3 Months N18.32 - Chronic kidney disease, stage 3b Complete Blood Count Auto Diff 3 Months N18.32 - Chronic kidney disease, stage 3b Coding Level of Care Code Est Pt Level 4 (50496) Diagnoses CKD stage 3b, GFR 30-44 ml/min N18.32
[2025-06-22 13:52] VITALS: BP 100/60; PULSE 69; O2SAT 98; BMI 24.4
--- OUTSIDE RECORDS SUMMARY | 2025-06-22 13:54 | XMS_ITS | Clinical Summary ---
Author Organization [facility] Address [address] [place] [address] Care Team Providers Care Jumbo Operator Name Role Phone Unknown Unavailable Unknown Unavailable Lula Baum NP Primary Care Provider Allergies Active Allergy Reactions Criticality Noted Date Comments Simvastatin Other (See Comments) 09/09/2021 No reaction type listed Medications ULORIC 80 MG tablet Take by mouth daily. 1 10/14/20 16 Active predniSONE (DELTASONE) 5 MG tablet Take 5 mg by mouth daily as needed. 1 10/14/20 16 Active aspirin (ECOTRIN) 325 MG EC tablet Take 325 mg by mouth daily. Active cholecalciferol (VITAMIN D3) 1000 UNITS tablet Take 1,000 Units by mouth daily. Active phytonadione (VITAMIN K, MEPHYTON) 5 MG tablet Take 5 mg by mouth once. Active TURMERIC CURCUMIN PO Take by mouth. Act kavin Krill Oil 500 MG Cap Take by mouth. Activ e coenzyme Q10 (CO Q 10) 100 MG capsule Take 100 mg by mouth daily. Active Apoaequorin (PREVAGEN) 10 MG Cap Take by mouth. Activ e Eliquis 5 MG tablet Take 5 mg by mouth 2 (two) times a day. 08/17/20 21 Active ascorbic acid (VITAMIN C) 500 MG tablet Take 500 mg by mouth. Active betamethasone dipropionate augmented (DIPROLENE-AF) 0.05 % cream betamethasone, augmented 0.05 % topical cream Active calcipotriene (DOVONEX) 0.005 % cream calcipotriene 0.005 % topical cream Active carvedilol (COREG) 6.25 MG tablet carvedilol 6.25 mg tablet Active furosemide (LASIX) 20 MG tablet 08/27/20 21 Active Misc Natural Products (Turmeric Curcumin) Cap Take 400 mg by mouth. Active OMEprazole (PriLOSEC) 40 MG capsule Take by mouth daily. 08/17/20 21 Active Potassium Gluconate 550 MG Tab Take 550 mg by mouth. 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 Family History Medical History Relation Name Comments Cancer Brother Cancer Father Cancer Mother Cancer Other Grandparent Cancer Sister Relation Name Status Comments Brother Father Mother Other Grandparent Sister Social History Tobacco Use Types Packs/Day Years Used Date Smoking Tobacco: Never Alcohol Use Standard Drinks/Week Comments Yes 5 (1 standard drink = 0.6 oz pur e alcohol) Sex and Gender Information Value Date Recorded Sex Assigned at Not on file Legal Sex Male 4:23 PM EST Gender Identity Not on file Sexual Orientation Not on file Last Filed Vital Signs Vital Sign Reading Time Taken Comments Blood Pressure 163/103 09/04/2021 3:42 PM EDT Per pt, may be stress related Pulse 58 09/04/2021 3:42 PM EDT Temperature 36.5 C (97.7 F) 09/04/2021 3:42 PM EDT Respiratory Rate 18 09/04/2021 3:42 PM EDT Oxygen Saturation 100% 09/04/2021 3:4 2 PM EDT Inhaled Oxygen Concentration - - Weight 87.6 kg (193 lb 3.2 oz) 09/04/2021 3:42 PM EDT Height 177.8 cm (5' 10 ) 09/04/2021 3:4 2 PM EDT Body Mass Index 27.72 09/04/2021 3:42 PM EDT Plan of Treatment Health Maintenance Due Date Last Done Comments DTaP/Tdap/Td Vaccines (1 - Tdap) 1964 Pneumococcal Vaccines 50+ (1 of 1 - PCV) 1994 Zoster (Shingles) Vaccine (1 of 2) 1994 RSV Vaccine 60 years and old er and Patients (1 - 1-dose 75+ series) 2019 COVID-19 Vaccine ( - 2023-2 5 season) 2024 Influenza Vaccine 06/23/2025 Hepatitis B Vaccines Aged Out No long er eligible based on patient's age to complete this topic Insurance MEDICARE PART A & B Care Teams Jumbo Operator Relationship Specialty Start Date End Date Lula Baum NP [address] [place] [address] PCP - General Geriatric Medicine 09/04/21 Unknown Unknow Provider Address 12/16/16 Unknown Unknow Provider Address Referring Provider 12/16/16
--- OUTSIDE RECORDS SUMMARY | 2025-06-22 13:54 | XMS_ITS | Patient Health Record ---
Author Organization [facility] Address [address] [facility] [address] [place] [address] Care Team Providers Care Toxicology Teacher Name Role Phone Lula Salinas Primary Care Provider Unavaila alondra HARMAN RAMIREZ Unavailable [phone] Allergies No Known Allergies Results Component Value Reference Range Notes Hepatic Function Panel (7)-[id number] Reviewed date:04/03/2025 09:33:35 AM Interpretation: Performing Lab:[facility], [address] [place] [address], Phone - [phone], Director - Griselda Notes/Report: Protein, Total 7.3 6.0-8.5 g/dL Albumin 4.0 3.8-4.8 g/dL Bilirubin, Total 2.6 0.0-1.2 mg/dL Bilirubin, Direct 1.33 0.00-0.40 mg/dL Alkaline Phosphatase 167 44-121 IU/L AST (SGOT) 56 0-40 IU/L ALT (SGPT) 34 0-44 IU/L PTH, Intact-[id number] Reviewed date:04/03/2025 09:33:35 AM Interpretation: Performing Lab:[facility] [place], [address] [place] [address], Phone - [phone], Director - Denishadry Notes/Report: PTH, Intact 21 15-65 pg/mL Phosphorus-[id number] Reviewed date:04/03/2025 09:33:35 AM Interpretation: Performing Lab:[facility] [place], [address] [place] [address], Phone - [phone], Director - Griselda Notes/Report: Phosphorus 4.5 2.8-4.1 mg/dL Calcium-[id number] Reviewed date:04/03/2025 09:33:35 AM Interpretation: Performing Lab:[facility] [place] [address] [place] [address], Phone - [phone], Director - MDJodry Notes/Report: Calcium 9.8 8.6-10.2 mg/dL Comp. Metabolic Panel (14)-3 [id number] Reviewed date:08/24/2024 09:01:49 AM Interpretation: Performing Lab:[facility], [address] [place] [address], Phone - [phone], [facility] Notes/Report: Glucose 132 70-99 mg/dL BUN [...] IU/L ALT (SGPT) 20 0-44 IU/L Lipid Panel-[id number] Reviewed date:08/24/2024 09:01:49 AM Interpretation: Performing Lab:[facility], [address] [place] [address], Phone - [phone], [facility]/Report: Cholesterol, Total 240 100-199 mg/dL Triglycerides 91 0-149 mg/dL HDL Cholesterol 70 >39 mg/dL VLDL Cholesterol Lg 16 5-40 mg/dL LDL Chol Calc (NIH) 154 0-99 mg/dL PTH, Intact-[id number] Reviewed date:08/24/2024 09:01:49 AM Interpretation: Performing Lab:[facility] [address] [place] [address], Phone - [phone], Director - gemini Notes/Report: PTH, Intact 37 15-65 pg/mL C-Reactive Protein, Quant-00 6627 Reviewed date:08/24/2024 09:01:49 AM Interpretation: Performing Lab:[facility]ie [facility] [address] [place] [address], Phone - [phone], Director - Griselda Notes/Report: C-Reactive Protein, Quant 13 0-10 mg/L [facility][id number] Reviewed date:08/24/2024 09:01:49 AM Interpretation: [facility]forming [facility], [address] [place] [address], Phone - [phone], Director - Griselda Notes/Report: Sedimentation [facility] 6 0-30 mm/hr CBC With Differential/Platel et-[id number] Reviewed date:08/24/2024 09:01:49 AM Interpretation: Performing Lab:[facility], [address] [place] [address], Phone - [phone], Director - Griselda Notes/Report: WBC 8.5 3.4-10.8 x10E3/uL RBC 4.93 [...] 04 Reviewed date:08/24/2024 09:01:49 AM Interpretation: Performing Lab:[facility], [address] [place] [address], Phone - [phone], Director - Griselda Notes/Report: Calcium, Ionized, Serum 5.1 4.5-5.6 mg/dL Hemoglobin T1y-[id number] Reviewed date:08/24/2024 09:01:49 AM Interpretation: Performing Lab:[facility] [place], [address], [place], Phone - [phone], Director - Griselda Notes/Report: Hemoglobin A1c 7.9 4.8-5.6 % . Prediabetes: 5.7 - 6.4 Diabetes: >6.4 Glycemic control for adults with diabetes: <7.0 Anaerobic/Aerobic/Gram Stain -[id number] Reviewed date:08/01/2024 12:19:40 PM Interpretation: Performing Lab:[facility], [address], [address], [place], Phone - [phone], Director - Nirmala Notes/Report: Clinical Information:right foot ulceration. Clinical Information:right [...] Result 3 Rare gram negat kavin rods. GGT-[id number] Reviewed date:04/03/2025 09:33:35 AM Interpretation: Performing Lab:[facility] [place], [address], [place], Phone - [phone], Director - Griselda Notes/Report: GGT 223 0-65 IU/L Reason For Referral Reason New diagnosis of irineo forrester with recent HgbA1c 7.9, Nonhealing ulceration right foot. Diagnosis 1 Type 2 diabetes alejo itus with other skin ulcer, without long-term current use of insulin (E11.622) Referral Organization [facility] Referring Provider First Name [...] of right Achilles tendon (M66.361) Referral Organization [facility] Referring Provider First Name HARMAN Referring Provider Last Name JAMES Referring Provider Speciality Podiatry Referred Provider Specialty Physical The rapist Referral Priority Routine Medications Medication SIG (Take, Route, Frequency, Duration) Notes Start Date End Date Status Turmeric Curcumin - 2 tablets Orally daily Active Doxycycline Monohydrate 100 MG 1 capsule Orally every 12 hrs; Duration: 7 days 08/15/2024 Not-Taking Metoprolol Succinate ER 25 MG 1 tablet Orally Once a day Active Doxycycline Monohydrate 100 MG 1 capsule Orally every 12 hrs; Duration: 7 days 08/04/2024 Not-Taking Farxiga 10 MG 1 tablet Orally Once a day Active Doxycycline Monohydrate 100 MG 1 capsule Orally every 12 hrs; Duration: 7 days 08/01/2024 Not-Taking predniSONE 5 MG 1 tablet Orally Once a day Active Doxycycline Monohydrate 100 MG 1 capsule Orally every 12 hrs; Duration: 7 days 07/28/2024 Not-Taking CoQ-10 100 MG 1 capsule with a meal Orally Once a day Active Vitamin D3 125 MCG (5000 UT) as directed Orally Active Vitamin K take 1500 mg by mouth daily Active Aspirin 81 MG 1 tablet Orally Once a day Not-Taking Febuxostat 40 MG TAKE 1 TABLET BY MOUTH EVERY DAY; Duration: 90 Not-Taking Eliquis 5 MG as directed Orally Not-Taking Augmentin 500-125 MG 1 tablet Orally every 12 hrs Not-Taking Repatha 140 MG/ML 1 mL Subcutaneous Active Uloric 40 MG TAKE 1 TABLET BY MOUTH EVERY DAY; Duration: 90 Active Furosemide 40 MG 1 tablet Orally Once a day Active Lidocaine 5 % 1 patch remove after 12 hours Externally to both feet Once a day; Duration: 30 days neuritis both feet 03/25/2021 Not-Taking Amoxicillin-Pot Clavulanate 250-125 MG 1 tablet Orally every 12 hours; Duration: 7 days 10/13/2024 Not-Taking Amoxicillin-Pot Clavulanate 500-125 MG 1 tablet Orally every 12 hrs; Duration: 7 days 09/23/2024 Not-Taking Magnesium Aspartate 144mg by dennise th daily Not-Taking Ascorbic Acid 500 MG 1 tablet Orally Once a day Not-Taking Krill Oil - 750mg Orally daily Not-Taking Doxycycline Monohydrate 100 MG 1 capsule Orally every 12 hrs; Duration: 14 days 09/15/2024 Not-Taking Skyrizi 180 MG/1.2ML [...] Problem Status W/U Status Risk Notes Problem Mixed hyperlipidemia (874258560) Mixed hyperlipidemia (E78.2) Active confirmed Problem Hypercalcemia (89848848) Hypercalcemia (E83.52) Active confirmed Problem 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 Problem Ulcer of right foot (disorder) (443739057) Ulcer of right foot with fat layer exposed (L97.512) Active confirmed Problem 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) (71332361274754902) 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 Problem Peripheral arterial disease (748074947) Peripheral arterial disease (I73.9) Active confirmed Problem Inflammatory and toxic neuropathy (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 confirmed Problem Gout (41635838) Acute gout of right foot, unspecified cause (M10.9) Active confirmed Problem Chronic kidney disease stage 4 (468427536) Stage 4 chronic kidney disease (N18.4) Active confirmed Problem Thrombocytopenia (861607501) Thrombocytopenia (D69.6) Active confirmed Problem Pressure injury of right foot, stage 3 (L89.893) Active confirmed Problem Skin ulcer associated with diabetes mellitus (514575539) Type 2 diabetes mellitus with other skin [...] N/A Encounters Encounter Location Date Provider Diagnosis [facility] [address] 07/28/2024 HARMAN JAMES Ulcer of right foot with fat layer exposed L97.512 ; Pressure injury of right foot, stage 3 L89.893 ; Peripheral arterial disease I73.9 and Drug-induced polyneuropathy G62.0 [facility] [address] 08/01/2024 HARMAN JAMES Ulcer of right foot with fat layer exposed L97.512 ; Pressure injury of right foot, stage 3 L89.893 ; Peripheral arterial disease I73.9 and Drug-induced polyneuropathy G62.0 [facility] [address] 08/19/2024 HARMAN JAMES Ulcer of right foot with fat layer exposed L97.512 ; Pressure injury of right foot, stage 3 L89.893 ; Peripheral arterial disease I73.9 ; Drug-induced polyneuropathy G62.0 ; Mixed hyperlipidemia E78.2 ; Hypercalcemia E83.52 and Stage 4 chronic kidney disease N18.4 [facility] [address] 09/09/2024 HARMAN JAMES Ulcer of right foot with fat layer exposed L97.512 ; Pressure injury of right foot, stage 3 L89.893 ; Peripheral arterial disease I73.9 ; Drug-induced polyneuropathy G62.0 and Mixed hyperlipidemia E78.2 [facility] [address] 09/20/2024 HARMAN JAMES Ulcer of right foot with fat layer exposed L97.512 ; Pressure injury of right foot, stage 3 L89.893 ; Peripheral arterial disease I73.9 ; Drug-induced polyneuropathy G62.0 ; Mixed hyperlipidemia E78.2 ; Thrombocytopenia D69.6 ; Acute anemia D64.9 ; Hyperbilirubinemia E80.6 and Stage 3b chronic kidney disease (CKD) N18.32 [facility] [address] 03/24/2025 HARMAN AJMES Non-traumatic ruptur e of right Achilles tendon M66.361 ; Weakness of right lower extremity R29.898 ; Open wound of left great toe, initial encounter S91.102A ; Elevated alkaline phosphatase level R74.8 ; Bilateral lower extremity edema R60.0 and Peripheral polyneuropathy G62.9 [facility] [address] 08/04/2024 HARMAN JAMES [facility] [address] 08/15/2024 HARMAN JAMES [facility] [address] 09/15/2024 HARMAN JAMES [facility] [address] [place] [address] 09/23/2024 HARMAN RAMIREZ [facility] [address] [place] [address] 10/13/2024 HARMAN RAMIREZ [facility] [address] [place] [address] 03/24/2025 HARMAN RAMIREZ [facility] [address] [place] [address] 03/27/2025 HARMAN RAMIREZ [facility] [address] [place] [address] 04/03/2025 HARMAN RAMIREZ [facility] [address] [place] [address] 04/03/2025 HARMAN RAMIREZ Assessments Encounter Date Diagnosis [...] and will continue to follow with his county judge. I did review signs and symptoms of [...] reviewing his past labs and visits at [facility] over the past couple of years. He most recent lab work that was done in April of 2024 showed worsening CKD stage 4 with thrombocytopenia (114). He had a visit with [facility] on 05/19/24 for lower extremity [...] He did share the results with his county judge who started him on Repatha. I did [...] the information from his recent admission to [facility]. He has had this plantar sub 5th [...] of labs that I could review at [facility] he has had worsening kidney function, [...] these results to his cardiology team at [facility] and they promptly started him on Repatha for the hyperlipidemia. I also notified his PCP team about the results and advised follow up for treatment for the DM2. Mr. Eaton also has peripheral arterial disease to both lower extremities with history of lower legs wounds and prolonged wound healing. He had bilateral arterial duplex at [facility] back in 05/2020 showing a 20cm occlusion [...] and patient wished to pursue this in [place] once he got there. Over the last [...] LDH, haptoglobin, peripheral blood smear, with B12, [id number] testing. ? drug induced, infection induced, vs cancer related. I have spent some time reviewing records that I can access at [facility]. I did discover that back when [...] to see vascular once he gets to [place] and also have wound care on board [...] to leave this week to head to [place]. 09/20/2024 Pressure injury of right foot, stage [...] candidate and was treated with conservatively in [place] 12 weeks in a CAM boot with [...] of [place] [address] [place] [phone] [id number] Boston Eaton Self - [facility] the [facility] [address] [place] [address] [id number] [place] Eaton Self - patient is the [...]
--- OUTSIDE RECORDS SUMMARY | 2025-06-22 13:55 | XMS_ITS | Clinical Summary ---
Author Organization [facility] Address [address] [address] Phone Care Team Providers Care Personal Computer Network Engineer Name Role Phone Erick August MD Primary Care Provider [phone] Meño Stuart MD Unavailable Duy Burch MD Unavailable Brian Mason MD Unavailable Lonny Mendez MD Unavailable Lula Baum NP Unavailable Allergies Active Allergy Reactions Criticality Noted Date Comments Uoecyay-Knx-Sjy Reductase Inhibitors Myalgia Medium 05/15/2015 Medications biotin 10 mg Tab Take 1 tablet by mouth daily. 5 Active cholecalciferol 1,000 unit tablet Take 1 tablet by mouth daily. 5 Active magnesium hydroxide (SAM CHEWS) 311 MG Chew Dose: 30 ML; Form: Not available; Route: PO; Frequency: QD; Directions: Not available; Details: Not available; Date: 05/15/2015 5 Active naproxen sodium (ALEVE) 220 MG tablet Take 1 tablet by mouth 2 (two) times a day. PRN pain. 5 Active custom medication, see admin inst / label comment, CO-ENZYME Q10 Dose: Not available; Form: Not available; Route: PO; Frequency: Not available; Directions: Not available; Details: Not available; Date: 05/15/2015 5 Active custom medication, see admin inst / label comment, ERYTHROMYCIN BASE PO Dose: 500; Form: Take 3 ; Route: PO; Frequency: as directed; Directions: 500 mg tabs; take as directed; Details: Dispense: 3 Tablet(s); Date: 06/04/2015 5 Active KRILL OIL ORAL Dose: Not available; Form: Not available; Route: PO; Frequency: Not available; Directions: Not available; Details: Not available; Date: 05/15/2015 5 Active febuxostat (ULORIC) 40 mg tablet Take 1 tablet by mouth daily. 5 Active erythromycin base (E-MYCIN) 500 MG tablet Take 1 tablet (500 mg) by mouth three times before surgery as directed. 3 tablet 0 6 Active Additional Information Patient not taking.Reported on 01/31/2016 neomycin (DIONNA-FRADIN) 500 mg tablet Take 2 tablets (1000 mg) by mouth three times before surgery as directed. 6 tablet 0 6 Active Additional Information Patient not taking.Reported on 01/31/2016 gabapentin (NEURONTIN) 400 MG capsule Take 200 mg by mouth 2 (two) times a day. Active metoclopramide HCl (REGLAN) 10 MG tablet Take 1 tablet (10 mg total) by mouth as directed for 1 dose. Take 1/2 hour before starting NuLytely. 1 tablet 0 6 Active Additional Information Patient not taking.Reported on 05/21/2016 predniSONE (DELTASONE) 10 MG tablet Take 10 mg by mouth daily. 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 Overview (10/30/2015): Polyp of vocal cord; removed Duodenal ulcer 05/15/2015 Overview (10/30/2015): Duodenal ulcer disease; remote past Colitis 05/15/2015 Overview (10/30/2015): Colitis; remote past Immunizations Immunization Administration Dates Next Due Influenza, Unspecified Formulation 01/24(Deferred: Patient Decision - 00) Pneumococcal polysaccharide PPSV23 01/24(Deferred: Patient Decision - 00) Pneumococcal, Unspecified Formulation (Deferred: Patient Decision - 00) Social History Tobacco Use Types Packs/Day Years Used Date Smoking Tobacco: Never Alcohol Use Standard Drinks/Week Comments Yes 4 (1 standard drink = 0.6 oz pur e alcohol) Education Answer Date Recorded Are you interested in more education? Not on martita e 03/29/2023 Are you concerned about learning? Not on file 03/29/2023 No 03/29/2023 No 03/29/2023 Digital Access Answer Date Recorded No 04/14/2023 No 04/14/2023 No 04/14/2023 Reliable internet access at home? Not on file 04/14/2023 Device with a working camera? Not on file Sex and Gender Information Value Date Recorded Sex Assigned at Not on file Legal Sex Male 6:04 PM EST Gender Identity Not on file Sexual Orientation Not on file Last Filed Vital Signs Vital Sign Reading Time Taken Comments Blood Pressure 111/68 05/21/2016 12:48 PM EDT Pulse 60 05/21/2016 12:48 PM EDT Temperature 36.4 C (97.6 F) 05/21/2016 11:19 AM EDT Respiratory Rate 12 05/21/2016 12:48 PM EDT Oxygen Saturation 99% 05/21/2016 12:48 PM EDT Inhaled Oxygen Concentration - - Weight 90.8 kg (200 lb 3.2 oz) 02/27/2016 2:07 P M EDT Height 177.8 cm (5' 10 ) 02/27/2016 2:07 PM EDT Body Mass Index 28.73 02/27/2016 2:07 PM EDT Plan of Treatment Health Maintenance Due Date Last Done Comments Adult Td,Tdap Booster 1945 LIPID PANEL 1945 DEPRESSION SCREENING 1956 PNEUMOCOCCAL VACCINES (50+ years) (1 of 2 - PCV) 1963 ZOSTER VACCINES (1 of 2) 1963 COLOGUARD 1989 FIT TEST 1989 FOBT 1989 SIGMOIDOSCOPY 1989 VIRTUAL COLONOSCOPY 1989 COLONOSCOPY 05/21/2019 05/21/2016 COLORECTAL CANCER SCREENING 05/21/2019 RSV VACCINE (1 - 1-dose 75+ series) 2019 COVID-19 VACCINE (3 - 2023-2 5 season) 2024 01/16/2021, 12/26/2020 SMOKING STATUS SCREENING (On ce After 26 Yrs) Completed 05/21/2016 HEPATITIS A VACCINES Aged Out No long er eligible based on patient's age to complete this topic HIB VACCINES Aged Out No longer eligi ble based on patient's age to complete this topic MENINGOCOCCAL VACCINES (ACWY) Aged Out No longer eligible based on patient's age to complete this topic MENINGOCOCCAL VACCINES (B) Aged Out N o longer eligible based on patient's age to complete this topic Medical Devices Not on file Procedures Procedure Name Priority Date/Time Associated Diagnosis Comments ENDOSCOPY, COLON 05/21/2016 11:4 0 AM EDT from Last 3 Months or Most Recently Relevant to Health Maintenance Results * ENDOSCOPY, COLON (05/21/2016 11:40 AM EDT) 05/21/2016 11:4 0 AM EDT Narrative 05/21/2016 12:09 PM EDT [facility] [id number] Patient Name: Boston Eaton Exam Date: 05/21/2016 11:40 AM Date of : 1945 Age: 70 Room: [address] Gender: Male Note Status: Finalized Attending MD: Aleksandar Bates MD Procedure: Colonoscopy Indications: High risk colon cancer surveillance: Personal history of colon cancer Providers: Aleksandar Bates MD, Radha Reyna, RN Referring MD: Erick August (Referring ), Lonny Mendez (Referring ), Duy Burch MD, Meño Stuart MD Medicines: Midazolam 4 mg IV, Fentanyl 100 micrograms IV Complications: No immediate complications. Procedure: After obtaining informed consent, the endoscope was passed under direct vision. Throughout the procedure, the patient's blood pressure, pulse, and oxygen saturations were monitored continuously . The Endoscope was introduced through the anus and advanced to the the cecum. The quality of the bowel preparation was good. Findings: The cecum lay at 60 cm. The anastomosis lay at cm. This was a side to end anastomosis, and was healthy. The degree of difficulty of the insertion was slight to moderate. Impression: - Normal postoperative colon. Recommendation: - Repeat colonoscopy in 3 years for surveillance. Aleksandar Bates MD, [id number] 05/21/2016 12:09 PM The attending physician was present throughout the entire procedure. Number of Addenda: 0 Note Initiated On: 05/21/2016 11:40 AM Procedure Note Aleksandar Bates MD - 05/21/2016 11:40 AM EDT [facility] [id number] Patient Name: Boston Eaton Exam Date: 05/21/2016 11:40 AM Date of : 1945 Age: 70 Room: [address] Gender: Male Note Status: Finalized Attending MD: Aleksandar Bates MD Procedure: Colonoscopy Indications: High risk colon cancer surveillance: Personal history of colon cancer Providers: Aleksandar Bates MD, Rahda Reyna, RN Referring MD: Erick August (Referring ), Lonny Mendez (Referring ), Duy Burch MD, Meño Stuart MD Medicines: Midazolam 4 mg IV, Fentanyl 100 micrograms IV Complications: No immediate complications. Procedure: After obtaining informed consent, the endoscope was passed under direct vision. Throughout the procedure, the patient's blood pressure, pulse, and oxygen saturations were monitored continuously . The Endoscope was introduced through the anus and advanced to the the cecum. The quality of the bowel preparation was good. Findings: The cecum lay at 60 cm. The anastomosis lay at cm. This was a side to end anastomosis, and was healthy. The degree of difficulty of the insertion was slight to moderate. Impression: - Normal postoperative colon. Recommendation: - Repeat colonoscopy in 3 years for surveillance. Aleksandar Bates MD, [id number] 05/21/2016 12:09 PM The attending physician was present throughout the entire procedure. Number of Addenda: 0 Note Initiated On: 05/21/2016 11:40 AM Erick August MD GI PROCEDURE ORDERABLES Final Result from Last 3 Months or Most Recently Relevant to Health Maintenance Insurance MEDICARE PART A & B [facility] TOTAL CHOICE INDEMNITY MEDICARE PART A & B [employer] TOTAL CHOICE INDEMNITY Member Subscriber Plan / Payer (Ef fective 2009-Present) Name:Boston Eaton Relation to Subscriber:Self Name:Eaton[place] Payer ID:[id number] (NAIC) Type:[facility] Address: [address] [address] MEDICARE PART A & B [employer] TOTAL CHOICE INDEMNITY MEDICARE PART A & B [employer] TOTAL CHOICE INDEMNITY MEDICARE PART A & B [employer] TOTAL CHOICE INDEMNITY MEDICARE PART A & B TOTAL CHOICE INDEMNITY MEDICARE PART A & B [facility] TOTAL CHOICE INDEMNITY MEDICARE PART A & B [facility] TOTAL CHOICE INDEMNITY MEDICARE PART A & B [facility] TOTAL CHOICE INDEMNITY Advance Directives For more information, please contact: [phone] (9AM - 5PM [facility], Thursday-Thursday) Documents on File Type Date Recorded Patient Pharmacy Technology Instructor Expl anation Advance Directive - Non Epic LMR 02/18/2016 12:00 AM Care Teams Personal Computer Network Engineer Relationship Specialty Start Date End Date Erick August MD [address] [place] [address] PCP - General Internal Medicine 01/24/16 Meño Stuart MD [address] [phone] [email or web address] Radiation Oncology 01/24/16 Duy Burch MD [address] [phone] [email or web address] Hematology 01/24/16 Brian Mason MD [address] [place] [phone] Rheumatology 01/24/16 Lonny Mendez MD [address] [place] [address] [email or web address] Internal Medicine 01/24/16 Lula Baum NP [address] [place] [address] Nurse Practitioner 01/24/16 Additional Source Comments The information contained in this document represents components of the legal health record. It is not the complete legal health record.[facility]
== END 2025-06-22 14:43 | disposition home or self-care (01) ==
LOC: HO.HKAS 13:39
PROVIDERS: PCP Physician Assistant Medical; Visit Provider Internal Medicine Nephrology
DX: N18.32 Chronic kidney disease, stage 3b (principal)
CPT/HCPCS: 99214

== ENCOUNTER → 2025-06-22 13:39 | Outpatient (BNVA) | payer MEDICARE, OTHER, SELFPAY | PROVIDERS: PCP Physician Assistant Medical; Visit Provider Internal Medicine Nephrology | DX: E11.22 Type 2 diabetes mellitus with diabetic chronic kidney disease (principal); I12.9 Hypertensive chronic kidney disease with stage 1 through stage 4 chronic kidney disease, or unspecified chronic kidney disease; N18.32 Chronic kidney disease, stage 3b | CPT/HCPCS: 99212 ==

== ENCOUNTER 2025-09-14 12:15 | Outpatient (REF) | payer MEDICARE, OTHER, SELFPAY ==
--- OUTSIDE RECORDS SUMMARY | 2025-09-14 15:27 | XMS_ITS | Encounter Summary ---
Author Organization [facility] Address [address] [place] [address] Care Team Providers Care Hand Woven Carpet And Rug Mender Name Role Phone Unknown Unavailable Unknown Unavailable Lula Baum NP Primary Care Provider [phone] Encounter Details Date Type Department Care Team (Late st Contact Info) Description 12/16/2016 Scanned Document [facility] [address] [place] [phone] Liv White PA [address] [place] [address] Social History Tobacco Use Types Packs/Day Years [...] on filedocumented in this encounter Care Teams Hand Woven Carpet And Rug Mender Relationship Specialty Start Date End Date Lula Baum NP [address] [place] [address] PCP - General Geriatric Medicine 09/04/21 Unknown Unknow Provider Address 12/16/16 Unknown Unknow Provider Address Referring Provider 12/16/16 documented as of this encounter
--- OUTSIDE RECORDS SUMMARY | 2025-09-14 15:27 | XMS_ITS | Clinical Summary ---
Author Organization [facility] Address [address] [place] [address] Care Team Providers Care Wireless Internet Installer Name Role Phone Unknown Unavailable Unknown Unavailable [...] Health Maintenance Due Date Last Done Comments Advance Care Planning 1945 DTaP/Tdap/Td Vaccines (1 - Tdap) 1963 Pneumococcal Vaccines 50+ (1 of 1 - PCV) 1994 Zoster (Shingles) Vaccine (1 of 2) 1994 RSV Vaccine 50 years and old er and Patients (1 - 1-dose 75+ series) 2019 Influenza Vaccine 06/23/2025 COVID-19 Vaccine (2023-2 5 season) 2025 Hepatitis B Vaccines Aged Out No long er eligible based on patient's age to complete this topic Insurance MEDICARE PART A & B Care Teams Wireless Internet Installer Relationship Specialty Start Date End Date Lula Baum NP [address] [place] [address] PCP - General Geriatric Medicine 09/04/21 Unknown Unknow Provider Address 12/16/16 Unknown Unknow Provider Address Referring Provider 12/16/16
--- OUTSIDE RECORDS SUMMARY | 2025-09-14 15:27 | XMS_ITS | Encounter Summary ---
Author Organization [facility] Address [address] [place] [address] Care Team Providers Care Dry Cure Worker Name Role Phone Unknown Unavailable Unknown Unavailable Lula Baum NP Primary Care Provider [phone] Encounter Details Date Type Department Care Team (Late st Contact Info) Description 01/08/2017 Scanned Document [facility] [address] [place] [phone] Liv White PA [address] [place] [address] Social History Tobacco Use Types Packs/Day Years [...] on filedocumented in this encounter Care Teams Dry Cure Worker Relationship Specialty Start Date End Date Lula Baum NP [address] [place] [address] PCP - General Geriatric Medicine 09/04/21 Unknown Unknow Provider Address 12/16/16 Unknown Unknow Provider Address Referring Provider 12/16/16 documented as of this encounter
--- OUTSIDE RECORDS SUMMARY | 2025-09-14 15:27 | XMS_ITS | Clinical Summary ---
Author Organization [facility] Address [address] [address] Phone Care Team Providers Care Dental Associate Name Role Phone Erick August MD Primary Care Provider [phone] Meño Stuart MD Unavailable Duy Burch MD Unavailable [phone] Brian Mason MD Unavailable Lonny Mendez MD Unavailable Lula Baum NP Unavailable [phone] Allergies Active Allergy Reactions Criticality Noted Date Comments Nhpydum-Lpz-Idp Reductase Inhibitors Myalgia Medium 05/15/2015 Medications biotin [...] VACCINE (1 - 1-dose 75+ series) 2019 INFLUENZA VACCINE (#1) 2025 COVID-19 VACCINE (3 - 2024-2 6 season) 2025 01/16/2021, 12/26/2020 SMOKING STATUS SCREENING (On ce [...] 05/21/2016 12:09 PM EDT [facility] [phone] Patient Name: [place] Eaton Exam Date: 05/21/2016 11:40 AM Date of : 1945 Age: 70 Room: [address] Gender: Male Note Status: Finalized Attending MD: Aleksandar Bates MD Procedure: Colonoscopy Indications: High risk colon cancer surveillance: Personal history of colon cancer Providers: Aleksandar Bates MD, Radha Reyna RN Referring MD: Erick August (Referring ), [...] 3 years for surveillance. Aleksandar Bates MD, [id number] 05/21/2016 12:09 PM The attending physician was present throughout the entire procedure. Number of Addenda: 0 Note Initiated On: 05/21/2016 11:40 AM Procedure Note Aleksandar Bates MD - 05/21/2016 11:40 AM EDT [facility] [id number] Patient Name: Boston Eaton Exam Date: 05/21/2016 11:40 AM Date of : 1945 Age: 70 Room: [address] Gender: Male Note Status: Finalized [...] 3 years for surveillance. Aleksandar Bates MD, [id number] 05/21/2016 12:09 PM The attending physician was present throughout the entire procedure. Number of Addenda: 0 Note Initiated On: 05/21/2016 11:40 AM Erick August MD GI PROCEDURE ORDERABLES Final Result from Last 3 Months or Most Recently Relevant to Health Maintenance Insurance MEDICARE PART A & B [facility] TOTAL CHOICE INDEMNITY MEDICARE PART A & B [employer] TOTAL CHOICE INDEMNITY MEDICARE PART A & B [employer] TOTAL CHOICE INDEMNITY MEDICARE PART A & B [employer] TOTAL CHOICE INDEMNITY MEDICARE PART A & B [employer] TOTAL CHOICE INDEMNITY MEDICARE PART A & B [facility] TOTAL CHOICE INDEMNITY MEDICARE PART A & B [facility] TOTAL CHOICE INDEMNITY MEDICARE PART A & B [facility] TOTAL CHOICE INDEMNITY MEDICARE PART A & B [facility] TOTAL CHOICE INDEMNITY Advance Directives For more information, please contact: [phone] (9AM - 5PM [facility], Thursday-Thursday) Documents on File Type Date Recorded Patient Graphics Specialist Expl anation Advance Directive - Non Epic LMR 02/18/2016 12:00 AM Care Teams Dental Associate Relationship Specialty Start Date End Date Erick August MD [address] [facility] [address] [place] [address] PCP - General Internal Medicine 01/24/16 Meño Stuart MD [address] [phone] [email or web address] Radiation Oncology 01/24/16 Duy Burch MD [address] [phone] [email or web address] Hematology 01/24/16 [place] [address] [place] [phone] Rheumatology 01/24/16 Lonny Mendez MD [address] [place] [phone] [email or web address] Internal Medicine 01/24/16 Lula Baum NP [address] [place] [phone] Nurse Practitioner 01/24/16 Additional Source Comments The information contained in this document represents components of the legal health record. It is not the complete legal health record.[facility]
[2025-09-14 18:00] LABS: Hematocrit 40.4 % (42.0-52.0); Hemoglobin 13.1 g/dl (14.0-18.0); Imm Gran Abs Auto 0.02 X10*3/uL (0.00-0.03); Imm Gran Pct Auto 0.3 % (0.0-0.4); MANUAL DIFF FLAG SCAN; Mean Corpuscular HGB Conc 32.4 g/dl (31.0-36.0); NRBC Abs Auto 0.000 X10*3/uL (0.0-0.012); NRBC Pct Auto 0.0 /100WBC (0.0-0.2); SCAN SMEAR FLAG 1
[2025-09-14 18:02] LABS: Lymphocytes Absolute Auto 1.4 X10*3/uL (1.2-4.9); Mean Corpuscular Hemoglobin 33.4 pg (27.0-33.0); Mean Corpuscular Volume 103.1 fL (80.0-98.0); Red Blood Count 3.92 X10*6/uL (4.60-5.80); White Blood Count 5.8 X10*3/uL (4.8-10.8)
[2025-09-14 18:32] LABS: PLT ABN DIST 1; Platelet Count 96 X10*3/uL (160-400)
[2025-09-14 18:34] LABS: Anion Gap 14 (12-20); Blood Urea Nitrogen 53 mg/dL (9-16); Carbon Dioxide 22 mmol/L (22-29); Chloride 108 mmol/L (96-108); Estimated Glomerular Filt Rate 32; Potassium 4.6 mmol/L (3.3-5.1); Sodium 139 mmol/L (135-145)
[2025-09-14 18:50] LABS: Parathyroid Hormone Intact 43.1 pg/mL (8.7-77.1)
== END 2025-09-14 12:16 | disposition home or self-care (01) ==
LOC: HO.HKASLDS 12:15
PROVIDERS: PCP Physician Assistant Medical; Visit Provider Internal Medicine Nephrology
DX: N18.32 Chronic kidney disease, stage 3b (principal)
CPT/HCPCS: 36415; 80051; 82306; 82565; 83970; 84100; 84520; 85025

== ENCOUNTER 2025-09-21 14:22 | Outpatient (AMB) | payer MEDICARE, OTHER, SELFPAY ==
--- OUTSIDE RECORDS SUMMARY | 2025-01-17 09:00 | XMS_ITS ---
Author Organization [facility] Address [address] [place] [address] Care Team Providers Care Hair Boiler Name Role Phone Sarika INFORMATION COORDINATOR, Lula Primary Care Provider Ronaldo Singh Unavailable [phone] REASON FOR VISIT L ankle wound Encounters Encounter Location Date Provider Diagnosis [facility] [address] [address] [place] [address] 01/17/2025 Ronaldo Gale Plan Of Treatment No Information Progress Notes * [place] EATONDOB:1945 ( 79 yo M)Acc No.[id number]:01/17/2025 Returning Patient Visit Patient: [place] PRUITT Provider: Thomas Gale NP :1945 A ge:79 Y S ex:Male Date:01/17/2025 [facility] [id number] Pcp:Lula Baum NP Subjective: * Chief Complaints: * 1 . L ankle wound. * Medical History: Objective: * Vitals: Assessment: Plan: * Treatment: * Billing Information: * Visit Code: * Procedure Codes: * Electronic signature of Chase Gale NP on 09/21/2025 at 05:25 PM EDT Sign off status: Pending * Provider: Thomas Gale NP Date: 0 01/17/2025 Generated for Katie corbett/Pily/eTransmitting on: 1 05:25 PM EDT
--- OUTSIDE RECORDS SUMMARY | 2025-02-06 08:30 | XMS_ITS ---
Author Organization [facility] Address [address] [place] [address] Care Team Providers Care Net Sorter Name Role Phone Zeyad LAYTON, Stefan Primary Care Provider UnavailEne Pyle [phone] Sapna LAYTON, Dunia Norman Unavaila ble REASON FOR VISIT PsA Encounters Encounter Location Date Provider Diagnosis [facility] [address] [place], [place] [id number] 02/06/2025 Ene Barr Plan Of Treatment Next Appt Details Provider Name:Ene Barr, 0 12/04/2025 02:30:00 PM, [address], [place], [place], [phone], Progress Notes * [place] EATON LDOB:1945 (79 yo M)Acc No.[id number]:02/06/2025 Progress Notes Patient: Oneil PRUITTluz Devine Provider: Tiffanie Barr MD :1945 A ge:79 Y S ex:Male Date:02/06/2025 Address:[address] [place], [id number] Pcp:Stefan Jeffers MD Subjective: * Chief Complaints: * 1 . PsA. * Medical History: Objective: * Vitals: Therapeutic Interventions: Assessment: Plan: * Treatment: * Images: * Electronic signature of Makenzie harrell Momo on 09/21/2025 at 04:25 PM CDT Sign off status: Pending * Provider: Tiffanie Barr MD Date: 0 02/06/2025 Generated for Printi ng/Pily/Gordo on: 1 04:25 PM CDT
--- OUTSIDE RECORDS SUMMARY | 2025-03-28 10:45 | XMS_ITS ---
Author Organization [facility] Address [address] [place] [address] Care Team Providers Care Service Car Operator Name Role Phone Zeyad LAYTON, Stefan Primary Care Provider UnavailEne Pyle [phone] Sapna LAYTON, Dunia Norman Unavaila ble REASON FOR VISIT PSA Encounters Encounter Location Date Provider Diagnosis [facility] [address] [place], [place] [phone] 03/28/2025 Ene Barr Plan Of Treatment Next Appt Details Provider Name:Ene Barr, 0 12/04/2025 02:30:00 PM, [address], [place], [place], [phone], Progress Notes * [place] EATON LDOB:1945 (79 yo M)Acc No.[id number]:03/28/2025 Progress Notes Patient: Oneil PRUITTluz Devine Provider: Tiffanie Barr MD :1945 A ge:79 Y S ex:Male Date:03/28/2025 Address:[address] [place], [id number] Pcp:Stefan Jeffers MD Subjective: * Chief Complaints: * 1 . PSA. * Medical History: Objective: * Vitals: Therapeutic Interventions: Assessment: Plan: * Treatment: * Images: * Electronic signature of Makenzie sharri Barr on 09/21/2025 at 04:24 PM CDT Sign off status: Pending * Provider: Tiffanie Barr MD Date: 0 03/28/2025 Generated for Printi ng/Pily/Gordo on: 1 04:24 PM CDT
--- NOTE | 2025-09-21 14:25 | HO.NEPHOV ---
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 He has vascular disease including moderate stenosis of both carotid arteries. He is on lipid lowering medications. He has H/O CVA of meg. He has H/O AVR as well as cardiomyopathy/ CHF and is on Farxiga, lasix, metoprolol. He has gout and is on Uloric. He also takes Coseyntyx. He has been having elevated liver enzymes( AST, GGT and Alk Phos). He recently had AMS which the family felt had improved with hydration. He denies any known LUPILLO or PAD. He has no H/O amyloidosis. His recent serum creatinine has been 1.94. His recent RUQ USS showed some ascites with mildly nodular hepatic contour suggestive of cirrhosis. 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 Atrial fibrillation Surgical History S/P ablation of atrial fibrillation S/P partial colectomy H/O colonoscopy with polypectomy H/O aortic valve replacement Social History Alcohol intake: former Patient Tobacco Use Status: Never used Tobacco Review of Systems Const All systems reviewed & are unremarkable except as noted in HPI and below Physical Exam Vital Signs: Last Vital Signs Pulse 41 L 09/21/25 14:26 BP 100/60 09/21/25 14:26 Pulse Ox 99 09/21/25 14:26 Oxygen Delivery Method Room Air 09/21/25 14:26 BMI result Body Mass Index 25.7 Const General: comfortable and no acute distress Orientation/consciousness: patient oriented x3 HEENT Mouth: Normal oral and palatal mucosa present Eyes EOM: EOMs intact bilaterally Neck Neck: Yes supple Resp Auscultation: clear to auscultation bilaterally Cardio Jugular venous distension: no JVD Rate: regular rate GI Palpation (GI): Soft to palpation Auscultation: normal bowel sounds General: Yes no CVA tenderness Back/Spine/Pelvis Back: no CVA tenderness Skin General skin exam: no rashes or lesions noted Neuro General: patient oriented x3 and moves all extremities Extrem General: Yes no pedal edema Results Reviewed Nephrology Results: Hgb, (14.0-18.0) 13.1 g/dl L 09/14/25 WBC, (4.8-10.8) 5.8 X10*3/uL 09/14/25 Plt Count, (160-400) 96 X10*3/uL L 09/14/25 Sodium, (135-145) 139 mmol/L 09/14/25 Potassium, (3.3-5.1) 4.6 mmol/L 09/14/25 Chloride, (96-108) 108 mmol/L 09/14/25 Carbon Dioxide, (22-29) 22 mmol/L 09/14/25 BUN, (9-16) 53 mg/dL H 09/14/25 Creatinine, (0.5-1.4) 2.02 mg/dL H 09/14/25 Calcium, (8.4-10.2) 9.7 mg/dL 05/29/25 Phosphorus, (2.7-4.5) 4.3 mg/dL 09/14/25 PTH Intact, (8.7-77.1) 43.1 pg/mL 09/14/25 Renal US 05/25/25 Assessment & Plan Assessment & Plan (1) CKD stage 3b, GFR 30-44 ml/min: Code(s): N18.32 - Chronic kidney disease, stage 3b Category: Medical Plan Boston has progressive renal disease likely due to multifactorial etiology. He has nodularity of liver suggestive of cirrhosis. He has H/O AVR as well as cardiomyopathy. He is not sure the liver cirrhosis is due to cardiac or liver etiology. He has been on various medications for psoriatic arthropathy. Progressive renal dysfunction from AIN or due to vascular disease with decompensation secondary to low BP / altered hemodynamics causing hemodynamic PILY needs to be considered. He has no H/O known amyloidosis( has cardiomyopathy as well as renal dysfunction). He is on Farxiga and his cardiac status is compensated. He has B/L LUPILLO by imaging. He may be a great candidate for spironolactone if his hemodynamics permit. His creatinine clearance is 43 mls/mt by last 24 hour urine collection. I shall consider doing immunofixation as well as a renal biopsy if his creatinine worsens. He needs to closely follow up with his superior court justice and needs to see a precision thread grinder operator. Orders: Orders Creatinine 2 Months N18.32 - Chronic kidney disease, stage 3b Blood Urea Nitrogen 2 Months N18.32 - Chronic kidney disease, stage 3b Electrolytes 2 Months N18.32 - Chronic kidney disease, stage 3b Coding Level of Care Code Est Pt Level 4 (96558) Diagnoses CKD stage 3b, GFR 30-44 ml/min N18.32
[2025-09-21 14:26] VITALS: BP 100/60; PULSE 41; O2SAT 99; BMI 25.7
--- OUTSIDE RECORDS SUMMARY | 2025-09-21 17:25 | XMS_ITS | Patient Health Record ---
Author Organization [facility] Address [address] [facility] [address] [place] [address] Care Team Providers Care Waiter/Waitress Captain Name Role Phone Lula Salinas Primary Care Provider Unavaila alondra HARMAN RAMIREZ Unavailable [phone] Allergies No Known Allergies Results Component Value Reference Range Notes [id number] Reviewed date:04/03/2025 09:33:35 AM Interpretation: Performing Lab:[facility], [address] [place] [address], Phone - [phone], Director - MDJodry Notes/Report: GGT 223 0-65 IU/L Hepatic Function Panel ([id number] Reviewed date:04/03/2025 09:33:35 AM Interpretation: Performing Lab:[facility], [address] [place] [address], Phone - [phone], Director - MDJodry Notes/Report: Protein, Total 7.3 6.0-8.5 g/dL Albumin 4.0 3.8-4.8 g/dL Bilirubin, Total 2.6 0.0-1.2 mg/dL Bilirubin, Direct 1.33 0.00-0.40 mg/dL Alkaline Phosphatase 167 44-121 IU/L AST (SGOT) 56 0-40 IU/L ALT (SGPT) 34 0-44 IU/L PTH, Intact-[id number] Reviewed date:04/03/2025 09:33:35 AM Interpretation: Performing Lab:[facility], [address] [place] [address], Phone - [phone], Director - MDJodry Notes/Report: PTH, Intact 21 15-65 pg/mL Phosphorus-000729 Reviewed date:04/03/2025 09:33:35 AM Interpretation: Performing Lab:[facility], [address] [place] [address], Phone - [phone], Director - MDJodry Notes/Report: Phosphorus 4.5 2.8-4.1 mg/dL Calcium-[id number] Reviewed date:04/03/2025 09:33:35 AM Interpretation: Performing Lab:[facility], [address], [place], Phone - [phone], Director - Griselda Notes/Report: Calcium 9.8 8.6-10.2 mg/dL Reason For Referral Reason non traumatic ruptur e of the right achilles midsubstance treated conservatively. Was unable to finish PT and would like to restart. He will also be getting a custom AFO. Diagnosis 1 Non-traumatic ruptur e of right Achilles tendon (M66.361) Referral Organization [facility] Referring Provider First Name HARMAN Referring Provider Last Name JAMES Referring Provider Speciality Podiatry Referred Provider Specialty Physical The rapist Referral Priority Routine Medications Medication SIG (Take, Route, Frequency, Duration) Notes Start Date End Date Status Doxycycline Monohydrate 100 MG 1 capsule Orally every 12 hrs; Duration: 7 days 08/01/2024 Not-Taking Doxycycline Monohydrate 100 MG 1 capsule Orally every 12 hrs; Duration: 7 days 07/28/2024 Not-Taking Farxiga 10 MG 1 tablet Orally Once a day Active predniSONE 5 MG 1 tablet Orally Once a day Active Skyrizi 180 MG/1.2ML 1.2 mL Subcutaneous Active Potassium Gluconate 550 MG 1 tablet Orally as needed Not-Taking Apoaequorin 10 MG as directed Orally Not-Taking hydrALAZINE HCl 10 MG 1 tablet with food Orally Three times a day Not-Taking Carvedilol 6.25 MG 1 tablet with food Orally Twice a day Not-Taking Doxycycline Monohydrate 100 MG 1 capsule Orally every 12 hrs; Duration: 14 days 09/15/2024 Not-Taking Ascorbic Acid 500 MG 1 tablet Orally Once a day Not-Taking Krill Oil - 750mg Orally daily Not-Taking Lidocaine 5 % 1 patch remove after 12 hours Externally to both feet Once a day; Duration: 30 days neuritis both feet 03/25/2021 Not-Taking Amoxicillin-Pot Clavulanate 250-125 MG 1 tablet Orally every 12 hours; Duration: 7 days 10/13/2024 Not-Taking Amoxicillin-Pot Clavulanate 500-125 MG 1 tablet Orally every 12 hrs; Duration: 7 days 09/23/2024 Not-Taking Magnesium Aspartate 144mg by dennise th daily Not-Taking Augmentin 500-125 MG 1 tablet Orally every 12 hrs Not-Taking Repatha 140 MG/ML 1 mL Subcutaneous Active Uloric 40 MG TAKE 1 TABLET BY MOUTH EVERY DAY; Duration: 90 Active Furosemide 40 MG 1 tablet Orally Once a day Active CoQ-10 100 MG 1 capsule with a meal Orally Once a day Active Febuxostat 40 MG TAKE 1 TABLET BY MOUTH EVERY DAY; Duration: 90 Not-Taking Vitamin D3 125 MCG (5000 UT) as directed Orally Active Eliquis 5 MG as directed Orally Not-Taking Vitamin K take 1500 mg by mouth daily Active Aspirin 81 MG 1 tablet Orally Once a day Not-Taking Turmeric Curcumin - 2 tablets Orally daily Active Doxycycline Monohydrate 100 MG 1 capsule Orally every 12 hrs; Duration: 7 days 08/15/2024 Not-Taking Metoprolol Succinate ER 25 MG 1 tablet Orally Once a day Active Doxycycline Monohydrate 100 MG 1 capsule Orally every 12 hrs; Duration: 7 days 08/04/2024 Not-Taking Problems Problem Type SNOMED Code ICD Code Onset Dates Problem Status W/U Status Risk Notes Problem Mixed hyperlipidemia (054513459) Mixed hyperlipidemia (E78.2) Active confirmed Problem Hypercalcemia (97178349) Hypercalcemia (E83.52) Active confirmed Problem 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 (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 Problem Cirrhosis of liver (50442243) Unspecified cirrhosis of liver (K74.60) Active confirmed Problem Ascites (788803222) Other ascite s (R18.8) Active confirmed Problem Peripheral vascular disease (649529931) PAD (peripheral artery disease) (I73.9) Active confirmed Problem Ulcer of right foot (disorder) (497046554) Ulcer of right foot with fat layer exposed (L97.512) Active confirmed Problem 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) (99080255575177371) 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 Problem Peripheral arterial disease (176608009) Peripheral arterial disease (I73.9) Active confirmed Problem Inflammatory and toxic neuropathy (948340687) 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) Active confirmed Problem Gout (92569966) Acute gout of right foot, unspecified cause (M10.9) Active confirmed Problem Chronic kidney disease stage 4 (004977428) Stage 4 chronic kidney disease (N18.4) Active confirmed Problem Thrombocytopenia (708874735) Thrombocytopenia (D69.6) Active confirmed Problem Pressure injury of right foot, stage 3 (L89.893) Active confirmed Problem Skin ulcer associated with diabetes mellitus (860050929) Type 2 diabetes mellitus with other skin ulcer, without long-term current use of insulin (E11.622) Active confirmed Vital Signs Height 70.5in in 07/07/2025 Encounters Encounter Location Date Provider Diagnosis [facility] [address] 03/24/2025 HARMAN JAMES Non-traumatic ruptur e of right Achilles tendon M66.361 ; Weakness of right lower extremity R29.898 ; Open wound of left great toe, initial encounter S91.102A ; Elevated alkaline phosphatase level R74.8 ; Bilateral lower extremity edema R60.0 and Peripheral polyneuropathy G62.9 [facility] [address] 07/07/2025 HARMAN JAMES Non-traumatic ruptur e of right Achilles tendon M66.361 ; Right foot pain M79.671 ; Weakness of right lower extremity R29.898 ; Peripheral polyneuropathy G62.9 ; Unspecified cirrhosis of liver K74.60 ; Other ascites R18.8 and PAD (peripheral artery disease) I73.9 [facility] [address] 09/23/2024 HARMAN JAMES [facility] [address] 10/13/2024 HARMAN JAMES [facility] [address] 03/24/2025 HARMAN JAMES [facility] [address] 03/27/2025 HARMAN JAMES [facility] [address] 04/03/2025 HARMAN JAMES [facility] [address] [facility] [address] [place] [address] 04/03/2025 HARMAN RAMIREZ Assessments Encounter Date Diagnosis (ICD Code) Assessment Notes Treatment Notes Treatment Clinical Notes Section Notes 03/24/2025 Non-traumatic rupture of right Achilles tendon [...] candidate and was treated with conservatively in [place] 12 weeks in a CAM boot with [...] are any further questions or concerns. 03/24/2025 Weakness of right lower extremity (ICD-10 - R29.898) 07/07/2025 Right foot pain (ICD-10 - M79.671) 07/07/2025 Non-traumatic rupture of right Achilles tendon (ICD-10 [...] candidate and was treated with conservatively in [place] 12 weeks in a CAM boot with removable wedges and PT. His PT has been off and on due to his health problems. He also never got the AFO brace. He was obvious weakness and atrophy to the right lower extremity causing a drop foot and circumduction like gait. He has flexor sub causing hammering of the lesser toes. He has been having some soreness to the right midfoot with what he thinks is more swelling to the right lower extremity than the left. Three weightbearing radiographs of the right ankle and two weightbearing radiographs of the right foot were taken today. No obvious changes for charcot arthropathy. There are degenerative changes to the ankle and subtalar joint along with gouty arthrosis to the 1st MTPJ. I discussed that the soreness and increased edema is likely a from the gait changes due to his Achilles. I discussed that he needs to focus on wearing better supportive shoe gear and really should be using a brace. He understood, but is unlikely to use the brace. I advised that he needs to avoid any barefoot walking and needs to continue to take his lasix regularly to help with his fluid overload. He currently has no open wounds, which is good. He is high risk due to his gait abnormalities, PAD, and neuropathy. He was hospitalized at [facility] for Jaundice back in March and was diagnosed with liver cirrhosis with ascites. His CHF had also worsened. He was encouraged to be stay for more testing, but left AMA. He was advised he would need to see a equipment engineer, hepatic specialist, pancreatic mass specialist, and protection specialist. There was also talk about getting a liver biopsy. He did refuse this, but after talking today he is reconsidering. He has seen a equipment engineer since then. He is awaiting to see other specialists when he gets back to [place]. His health remains complex, but his kidney function has seemed to improve some along with his LFTs and platelets. He no longer is jaundice. He still has issues with fluid overload due to his CHF and likely from the liver as well. This causes significant lower extremity edema. He also has PAD and has seen vascular in the past. I discussed with him that his lower extremity issues will continue and he has to be very careful about protecting his gait and feet. He understood. He will follow back with me in 2 months or sooner if needed. I encouraged him to call me if he has any questions or concens in the meantime. 07/07/2025 Weakness of right lower extremity (ICD-10 - R29.898) 03/24/2025 Open wound of left great toe, initial encounter (ICD-10 - S91.102A) 03/24/2025 Elevated alkaline phosphatase level (ICD-10 - R74.8) 07/07/2025 Peripheral polyneuropathy (ICD-10 - G62.9) 03/24/2025 Bilateral lower extremity edema (ICD-10 - R60.0) 07/07/2025 Unspecified cirrhosis of liver (ICD-10 - K74.60) 07/07/2025 Other ascites (ICD-10 - R18.8) 03/24/2025 Peripheral polyneuropathy (ICD-10 - G62.9) 07/07/2025 PAD (peripheral artery disease) (ICD-10 - I73.9) Plan Of Treatment Pending Test Test Name Order Date X ray : Ankle, right, 3 views 07/07/2025 X ray : Foot, right, 2 views 07/07/2025 GGT 03/24/2025 X ray : Foot, left [...] Date Medicare [place] [address] OCTAVIA BROWNJAMES [phone] [id number] [place] Eaton Self - patient is the insured [facility] [address] [place] [address] [id number] [place] Eaton Self - patient is the [...] traumatic right Achilles rupture zach ated conservatively cirrhosis Surgical History Surgery Date(Month/Year) colon surgery for cancer cardioversion for afib TAVR, bovine Hospitalization History Reason Date(Month/Year) Left paramedial pontine hemorrhage 3 1 day stay at [facility] 2024 right foot infection/drug re action. Hypotension, fever, worsening thrombocytopenia and anemia 09/16/2024
--- OUTSIDE RECORDS SUMMARY | 2025-09-21 17:25 | XMS_ITS | Encounter Summary ---
Author Organization [facility] Address [address] [place] [address] Care Team Providers Care Programming Intern Name Role Phone Unknown Unavailable Unknown Unavailable Lula Baum NP Primary Care Provider [phone] Encounter Details Date Type Department Care Team (Late st Contact Info) Description 01/08/2017 Scanned Document [facility] [address] [place] [phone] Liv White PA [address] [place] [address] Social History Tobacco Use Types Packs/Day Years [...] on filedocumented in this encounter Care Teams Programming Intern Relationship Specialty Start Date End Date Lula Baum NP [address] [place] [address] PCP - General Geriatric Medicine 09/04/21 Unknown Unknow Provider Address 12/16/16 Unknown Unknow Provider Address Referring Provider 12/16/16 documented as of this encounter
--- OUTSIDE RECORDS SUMMARY | 2025-09-21 17:25 | XMS_ITS | Encounter Summary ---
Author Organization [facility] [place] Address [address] [place] [address] Care Team Providers Care Party Plan Sales Consultant Name Role Phone Unknown Unavailable Unknown Unavailable Lula Baum NP Primary Care Provider [phone] Encounter Details Date Type Department Care Team (Late st Contact Info) Description 12/16/2016 Scanned Document [facility] [address] [place] [phone] Liv White PA [address] [place] [address] Social History Tobacco Use Types Packs/Day Years [...] on filedocumented in this encounter Care Teams Party Plan Sales Consultant Relationship Specialty Start Date End Date Lula Baum NP [address] [place] [address] PCP - General Geriatric Medicine 09/04/21 Unknown Unknow Provider Address 12/16/16 Unknown Unknow Provider Address Referring Provider 12/16/16 documented as of this encounter
--- OUTSIDE RECORDS SUMMARY | 2025-09-21 17:25 | XMS_ITS | Clinical Summary ---
Author Organization [facility] Address [address] [place] [address] Care Team Providers Care Senior Ecologist Name Role Phone Unknown Unavailable Unknown Unavailable [...] MEDICARE PART A & B Care Teams Senior Ecologist Relationship Specialty Start Date End Date Lula Baum NP [address] [place] [address] PCP - General Geriatric Medicine 09/04/21 Unknown Unknow Provider Address 12/16/16 Unknown Unknow Provider Address Referring Provider 12/16/16
--- OUTSIDE RECORDS SUMMARY | 2025-09-21 17:25 | XMS_ITS | Patient Health Record ---
Author Organization [facility] Address [address] [place] [address] Care Team Providers Care Steep Tender Name Role Phone Sarika SKOOG OPERATOR, Lula Primary Care Provider Unava Ronaldo Wren Unavailable [phone] Allergies Allergen (clinical drug ingredient) Drug/Non Drug Allergy documented on EMR Reaction Allergy Type Onset Date Status Aggrenox Unknown Drug Allergy Active oxycodone oxyCODONE HCl Unknown Drug Allergy Act kavin simvastatin Simvastatin Unknown Drug Allergy Act kavin Reason For Referral No Information Medications Medication SIG (Take, Route, Frequency, Duration) Notes Start Date End Date Status Farxiga 10 MG 1 tablet Orally Once a day Active Compression Stockings Active ZyrTEC 10 MG 1 tablet Orally Once a day Active Vitamin K2 Active Lasix 40 MG 1 tablet Orally Once a day Active Metoprolol Succinate 25 MG 1 capsule Ora lly Once a day Active Magnesium Oxide 400 MG 1 tablet with gretchen d Orally Once a day Active Vitamin D3 125 MCG (5000 UT) 1 capsule Orally Once a day Active Vitamin B Complex - as directed Orally Active Uloric 40 MG 1 tablet Orally Once a day Active predniSONE 5 MG 1 tablet Orally Once a day Active Problems Problem Type SNOMED Code ICD Code Onset Dates Problem Status W/U Status Risk Notes Problem 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 confirmed Problem Essential hypertension (36526025) Essential (primary) hypertension (I10) Active confirmed Problem Heart failure (55895815) Heart failure, unspecified (I50.9) Active confirmed Problem Peptic ulcer without haemorrhage AND without perforation (63319309) Peptic ulcer, site unspecified, unspecified as acute or chronic, without hemorrhage or perforation (K27.9) Active confirmed Problem Psoriatic arthritis (disorder) (146796337) Other psoriatic arthropathy (L40.59) Active confirmed Problem Chronic kidney disease stage 4 (388047809) Chronic kidney disease, stage 4 (severe) (N18.4) Active confirmed Problem Open wound of foot (172176503) Unspecified open wound, right foot, subsequent encounter (S91.301D) Active confirmed Problem Psoriatic arthritis (554244871) Psoriatic arthritis (L40.50) Active confirmed Problem Hypercholesterolemia (65511833) Hypercholesterolemia (E78.00) Active confirmed Problem Atrial fibrillation (60454635) Atrial fibrillation (I48.91) Active confirmed Problem Gout (71471340) Gout (M10.9) Active confirmed Problem Obese (878588048) Obese (E66.9) Active confirme d Problem CVA - Cerebrovascula r accident (694368837) CVA (cerebral vascular accident) (I63.9) Active confirmed Problem Disorder of carotid artery (disorder) (404052320) Carotid artery disorder (I77.9) Active confirmed Problem Cardiomyopathy (91644505) Cardiomyopathy (I42.9) Active confirmed Vital Signs Heart Rate 60 /min 05/30/2025 Temperature 97.6 degrees Fahrenheit 05/30/2025 Respiratory Rate 16 /min 05/30/2025 Blood pressure diastolic 44 mm Hg 05/30/2025 Oximetry 98 % 05/30/2025 Height-cm 177.8 cm 05/30/2025 Weight-kg 77.57 kg 05/30/2025 Height 70 in 05/30/2025 Blood pressure systolic 80 mm Hg 05/30/2025 Weight 171 lbs 05/30/2025 BMI 24.53 kg/m2 05/30/2025 Encounters Encounter Location Date Provider Diagnosis [facility] [address] [address] 05/25/2025 Ronaldo Gale Unspecified open wound, right foot, initial encounter S91.301A ; Essential (primary) hypertension I10 and Heart failure, unspecified I50.9 [facility] [address] [address] 05/30/2025 Ronaldo Gale Essential (primary) hypertension I10 ; Unspecified open wound, right foot, subsequent encounter S91.301D and Heart failure, unspecified I50.9 [facility] [address] [address] 01/11/2025 Ronaldo Gale [facility] [address] [facility] [address] [place] [address] 05/22/2025 Ronaldo Gale Assessments Encounter Date Diagnosis (ICD Code) Assessment Notes Treatment Notes Treatment Clinical Notes Section Notes 05/25/2025 Essential (primary) hypertension (ICD-10 - I10) 05/25/2025 Unspecified open wound, right foot, initial encounter (ICD-10 - S91.301A) 05/30/2025 Essential (primary) hypertension (ICD-10 - I10) 05/30/2025 Unspecified open wound, right foot, subsequent encounter (ICD-10 - S91.301D) 05/30/2025 Heart failure, unspecified (ICD-10 - I50.9) 05/25/2025 Heart failure, unspecified (ICD-10 - I50.9) 05/25/2025 Other On assessment today, [place] is noted to be afebrile and other VS were within normal limits. The patient denies pain or discomfort related to wound. We removed dressings and I exained his wound with no suggestive s/s of an underlying infectious process. There was no foul odor noted. wound noted to left foot 4th dig is trauma in nature. The wond bed is granular and fibrinous rim with slight callus formation noted After examination, I discussed the indication of debridement and they were agreeable. I then performed debridement to remove devitalized tissues as outlined. He tolerated procedure well.pergranulated areas. The wound site were then cleansed with Dakin's solution, then salin and thereafter, nursing applied xeroform onto the wound site and zinc to conor wound areas. The site were then covered with a dry dressing. Patient was educated on elevating their legs and protect wound site caregiver will be performing the above dressing changes regularlyno karrie indicated due to history S/S of infection reviewed and when to go to EDPatient will have FU in one week A total of 38 minutes was spent on this visit (face to face and non face to face) documenting HPI and performing physical exam, reviewing previous notes and testing, reviewing and adjusting treatment plan, counseling the patient on treatment choices, disease process, expected outcomes, and documenting the findings in the note. I, Ronaldo Gale, MSN, STEM TEACHER, AERODYNAMICIST-C, examined, evaluated , and treated the patient. Dr. Anibal Claudio was available for any questions or concerns that I may have had. 05/30/2025 Skyler Mead is afebrile with no signs of skin infection. There was 100 % epithelialization noted with no open area noted to left foot 4th digit. No debridement was performed at todays visit. Encouraged to elevate BLE as tolerated and to use protective dressing for next few days for new fragile skin. Patient was educated to call wound clinic with any questions comments or concerns. Thank you for allowing us to care for your wound A total of 35 minutes was spent on this visit (face to face and non face to face) documenting HPI and performing physical exam, reviewing previous notes and testing, reviewing and adjusting treatment plan, counseling the patient on treatment choices, disease process, expected outcomes, and documenting the findings in the note. I, Ronaldo Gale, MSN, STEM TEACHER, AERODYNAMICIST-C, examined, evaluated , and treated the patient. Dr. Anibal Claudio was available for any questions or concerns that I may have had. Plan Of Treatment No Information Insurance Providers Payer Name Payer Address Payer Phone Subscriber Number Group Number Insured Name Patient Relationship to Insured Coverage Start Date Coverage End Date Medicare [address] JAMES MCKEON [id number] [place] Eaton Self - patient is the insured 9 [facility] [address] [place], [place] [phone] [id number] [place] Eaton Self - patient is the insured 9 Medical (General) History Medical History History ICD Code Atrial fibrillation I48.91 Essential (primary) hypertension I10 CHF (congestive heart failure) I50.9 Chronic kidney disease, stage 4 (severe) N18.4 Cardiomyopathy I42.9 Carotid artery disorder I77.9 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
--- OUTSIDE RECORDS SUMMARY | 2025-09-21 17:26 | XMS_ITS | Patient Health Record ---
Author Organization [facility] Address [address] [place] [address] Care Team Providers Care Pipeline Dispatcher Name Role Phone Stefan Jeffers MD Primary Care Provider Unavaila Ene Hawthorne Unavailable [phone] Dunia Alejo MD Unavailable Unavaila ble Allergies No Known Allergies Results Component Value Reference Range Notes Urine Culture, Routine Reviewed date:03/08/2025 08:20:27 AM Interpretation: Performing Lab:[facility] [address] [id number], Phone - [phone], Director - Bindu Notes/Report: Clinical Information:SRC:UR Clinical Information:SRC:UR Urine Culture, Routine Final report Result 1 Comment Culture shows less than 10,000 colony forming units of bacteria per milliliter of urine. This colony count is not generally considered to be clinically significant. C-Reactive Protein, Quant Reviewed date:03/08/2025 08:20:27 AM Interpretation: Performing Lab:[facility] [address] [id number], Phone - [phone], Director - Bindu Notes/Report: Clinical Information:SRC:UR C-Reactive Protein, Quant 20 0-10 mg/L CBC With Differential/Platel et Reviewed date:03/08/2025 08:20:27 AM Interpretation: Performing Lab:[facility] [address] [id number], Phone - [phone], Director - Bindu Notes/Report: Clinical Information:SRC:UR WBC [...] Complete Reviewed date:03/08/2025 08:20:27 AM Interpretation: Performing Lab:[facility] [id number], Phone - [phone], Director - Bindu Notes/Report: Clinical Information:SRC:UR Clinical Information:SRC:UR Specific [facility] 1.011 1.005-1.030 pH 6.0 5.0-7.5 Urine-Color Yellow [...] date:11/21/2024 11:43:16 AM Interpretation: Performing Lab:[facility] [place], [place] [id number], Phone - [phone], Director - Bindu Notes/Report: HBsAg Screen Negative [...] Incubated) Reviewed date:11/21/2024 11:43:16 AM Interpretation: Performing Lab[facility] [place], [place] [id number], Phone - [phone], Director - Bindu Notes/Report: QuantiFERON Incubation Incubation [...] (14) Reviewed date:11/21/2024 11:43:16 AM Interpretation: [facility] [place], [place] [id number], Phone - [phone], Director - Bindu Notes/Report: Glucose 109 70-99 [...] Reviewed date:11/21/2024 11:43:16 AM Interpretation: Performing Lab:[facility] [place], [address] [place] [id number], Phone - [phone], Director - Bindu Notes/Report: C-Reactive Protein, Quant 25 0-10 mg/L CBC With Differential/Platel et Reviewed date:11/21/2024 11:43:16 AM Interpretation: Performing Lab:[facility], [address] [place] [id number], Phone - [phone], Director - Bindu Notes/Report: WBC 10.2 3.4-10.8 [...] ry 12 hrs Not-Taking Vitamin K2 Active Vitamin D3 Active Metoprolol Succinate 25 [...] tablet Orally Once a day prn Active predniSONE 1 MG 4 tablets Orally eac h morning 2mg a day 11/14/2024 Active Skyrizi Pen 150 MG/ML Maintenance Dose: Inject one pen Subcutaneous Once every 12 weeks; Duration: 90 days 11/14/2024 Active Immunizations Vaccine Route [...] W/U Status Risk Notes Problem Psoriasis vulgaris (584062652) Psoriasis vulgaris (L40.0) Active confirmed Problem Psoriatic arthritis (disorder) (899274130) Other psoriatic arthropathy (L40.59) Active confirmed Problem Psoriasis (2468820) Other psoriasis (L40.8) Active confirmed Problem Chronic fatigue syndrome (disorder) (24675822) Chronic fatigue, unspecified (R53.82) Active confirmed Problem Long-term current use of systemic steroid (6134434060565 03) 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 [address] [place], [place] [id number] 01/06/2025 [facility] [address] [place], [place] [id number] 02/15/2025 Ene Barr Other psoriatic arthropathy L40.59 [facility] [address] [place], [place] [id number] 04/18/2025 Ene [facility] [address] [place], [place] [id number] 04/28/2025 Ene Barr Other psoriatic arthropathy L40.59 [facility] [address] [place], [place] [id number] 07/25/2025 Ene Barr Other psoriatic arthropathy L40.59 [facility] [address] [place], [place] [id number] 11/15/2024 Ene Barr Other psoriatic arthropathy L40.59 [facility] [address] [place], [place] [id number] 11/28/2024 [facility] [address] [place], [place] [id number] 11/28/2024 Ene Barr Psoriasis vulgaris L40.0 [facility] [address] [place], [place] [id number] 11/29/2024 [facility] [address] [place], [place] [id number] 12/01/2024 [facility] [address] [place], [place] [id number] 12/01/2024 [facility] [address] [place], [place] [id number] 12/17/2024 [facility] [address] [place], [place] [id number] 12/21/2024 Ene Barr Assessments Encounter Date Diagnosis [...] able to return until they get back 04/28/2025 Other psoriatic arthropathy (ICD-10 - L40.59) 07/25/2025 Other psoriatic arthropathy (ICD-10 - L40.59) 11/15/2024 Other psoriatic arthropathy (ICD-10 - L40.59) 03/06/2025 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 (ICD-10 [...] to return until they get back 11/14/2024 halfway (current) use of systemic steroids (ICD-10 - [...] 60 minutes spent on todays encounter 02/06/2025 halfway (current) use of systemic steroids (ICD-10 - [...] return to clinic in 2-3 months 02/06/2025 halfway high risk medication (other) (ICD-10 - Z79.899) [...] return to clinic in 2-3 months 11/14/2024 halfway high risk medication (other) (ICD-10 - Z79.899) [...] 60 minutes spent on todays encounter 03/06/2025 petroleum terminal 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 high risk medication (other) (ICD-10 - [...] Name:Ene Barr, Brisa 12/04/2025 02:30:00 PM, [address], [place], [place], [id number], Insurance Providers Payer Name Payer Address Payer Phone Subscriber Number Group Number Insured Name Patient Relationship to Insured Coverage Start Date Coverage End Date [employer] [address] [facility] [place] [address] [phone] [id number] [place] Eaton Self - patient is the insured [facility] [address] [address] [place] [address] [id number] AngelitoOneilig Self - patient is the insured Medical (General) History Medical History History ICD Code cardiomyopathy, EF 20-25% in 2021 gout psoriatic arthritis - tx methotrexate (m alaise), Enbrel colon cancer, age 69, tx surgery and justina mo 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
--- OUTSIDE RECORDS SUMMARY | 2025-09-21 17:26 | XMS_ITS | Clinical Summary ---
Author Organization [facility] Address [address] [address] Phone Care Team Providers Care Ict Developer Name Role Phone Erick August MD Primary Care Provider [phone] Meño Stuart MD Unavailable Duy Burch MD Unavailable Brian Mason MD Unavailable Lonny Mendez MD Unavailable Lula Baum NP Unavailable [phone] Allergies Active Allergy Reactions Criticality Noted Date Comments Nuvnomt-Jfe-Gkc Reductase Inhibitors Myalgia Medium 05/15/2015 Medications biotin [...] 05/21/2016 12:09 PM EDT [facility] [phone] Patient Name: [place] Eaton Exam Date: 05/21/2016 11:40 AM Date of : 1945 Age: 70 Room: [address] Gender: Male Note Status: Finalized [...] 3 years for surveillance. Aleksandar Bates MD, [id number] 05/21/2016 12:09 PM The attending physician was present throughout the entire procedure. Number of Addenda: 0 Note Initiated On: 05/21/2016 11:40 AM Procedure Note Aleksandar Bates MD - 05/21/2016 11:40 AM EDT [facility] [phone] Patient Name: [place] Eaton Exam Date: 05/21/2016 11:40 AM Date of : 1945 Age: 70 Room: [address] Gender: Male Note Status: Finalized [...] 3 years for surveillance. Aleksandar Bates MD, [id number] 05/21/2016 12:09 PM The attending physician was present throughout the entire procedure. Number of Addenda: 0 Note Initiated On: 05/21/2016 11:40 AM Erick August MD GI PROCEDURE ORDERABLES Final Result from Last 3 Months or Most Recently Relevant to Health Maintenance Insurance MEDICARE PART A & B [facility] TOTAL CHOICE INDEMNITY MEDICARE PART A & B [employer] TOTAL CHOICE INDEMNITY MEDICARE PART A & B [employer] TOTAL CHOICE INDEMNITY MEDICARE PART A & B [employer] TOTAL CHOICE INDEMNITY MEDICARE PART A & B [employer] TOTAL CHOICE INDEMNITY MEDICARE PART A & B [facility] TOTAL CHOICE INDEMNITY MEDICARE PART A & B [facility] TOTAL CHOICE INDEMNITY MEDICARE PART A & B [facility] TOTAL CHOICE INDEMNITY MEDICARE PART A & B [facility] TOTAL CHOICE INDEMNITY Advance Directives For more information, please contact: [phone] (9AM - 5PM [facility], Thursday-Thursday) Documents on File Type Date Recorded 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 Advance Directive - Non Epic LMR 02/18/2016 12:00 AM Care Teams Ict Developer Relationship Specialty Start Date End Date Erick August MD [address] [facility] [address] [place] [address] PCP - General Internal Medicine 01/24/16 Meño Stuart MD [address] [phone] [email or web address] Radiation Oncology 01/24/16 Duy Burch MD [address] [phone] [email or web address] Hematology 01/24/16 [place] [address] [place] [phone] Rheumatology 01/24/16 Lonny Mendez MD [address] [place] [phone] [email or web address] Internal Medicine 01/24/16 Lula Baum NP [address] [place] [phone] Nurse Practitioner 01/24/16 Additional Source Comments The information contained in this document represents components of the legal health record. It is not the complete legal health record.[facility]
== END 2025-09-21 15:01 | disposition home or self-care (01) ==
LOC: HO.HKAS 14:23
PROVIDERS: PCP Physician Assistant Medical; Visit Provider Internal Medicine Nephrology
DX: N18.32 Chronic kidney disease, stage 3b (principal)
CPT/HCPCS: 99214

== ENCOUNTER → 2025-09-21 14:22 | Outpatient (BNVA) | payer MEDICARE, OTHER, SELFPAY | PROVIDERS: PCP Physician Assistant Medical; Visit Provider Internal Medicine Nephrology | DX: E11.22 Type 2 diabetes mellitus with diabetic chronic kidney disease (principal); I12.9 Hypertensive chronic kidney disease with stage 1 through stage 4 chronic kidney disease, or unspecified chronic kidney disease; N18.32 Chronic kidney disease, stage 3b; Z79.899 Other long term (current) drug therapy | CPT/HCPCS: 99212 ==